=== PATIENT | female | born 1985 | race Caucasian/White ===

== ENCOUNTER 2019-01-13 22:56 | Inpatient (IN) ==
[2019-01-14 01:07] LABS: Basophils # (auto) 0.04 K/uL (0-0.2); Basophils % (auto) 0.3 %; Eosinophils % (auto) 0.8 %; Hematocrit (blood only) 41.5 % (37-47); Hemoglobin 14.3 g/dL (12.0-16.0); Immature Granulocytes # (auto) 0.04 K/uL (0.00-0.02); Immature Granulocytes % (auto) 0.3 %; Lymphocytes # (auto) 2.56 K/uL (1.2-3.4); Lymphocytes % (auto) 21.7 %; Mean Corpuscular Hgb Conc 34.5 g/dL (32-36); Mean Corpuscular Volume 84.3 fL (80-100); Mean Platelet Volume 9.3 fL (7.4-10.4); Monocytes # (auto) 0.77 K/uL (0.11-0.59); Monocytes % (auto) 6.5 %; Neutrophils # (auto) 8.27 K/uL (1.4-6.5); Neutrophils % (auto) 70.4 %; Platelet Count 256 K/uL (130-400); RDW Coefficient of Variation 15.7 % (11.5-14.5); RDW Standard Deviation 48.1 fL (36.4-46.3); Red Blood Count 4.92 M/uL (4.2-5.4); White Blood Count 11.78 K/uL (4.8-10.8)
[2019-01-14 01:26] LABS: Albumin Level 3.6 gm/dl (3.4-5.0); BUN Creatinine Ratio 11.2 (10-20); Creatinine Clr Calc Pharmacy 106.6 ml/min; Est GFR (African American) 134.1; Est GFR (Non-African American) 115.7; Potassium 3.6 mmol/L (3.5-5.1)
[2019-01-14 01:29] LABS: Pregnancy Test, Serum Negative (Negative)
[2019-01-14 01:37] LABS: Albumin Globulin Ratio 0.9 (0.9-2); Bilirubin,Total 0.3 mg/dl (0.2-1); Globulin 4.1 gm/dl (2.5-4.0); Total Protein 7.7 gm/dl (6.4-8.2)
[2019-01-14 01:41] LABS: Acetaminophen < 2 ug/ml (10-30); Salicylate 3.3 mg/dl (2.8-20)
[2019-01-14] MEDS ORDERED: LIDOCAINE/EPINEPHRINE 1% 20 ML VIAL ONE ×2 (02:41→03:26)
[2019-01-14 02:47] LABS: Appearance Urine Clear (Clear); Bilirubin Urine Negative (Negative); Blood Urine Negative (Negative); Color Urine Yellow; Glucose Urine UA Negative (Negative); Ketones Urine Negative (Negative); Leukocyte Esterase Urine Negative (Negative); Nitrite Urine Negative (Negative); Protein Urine Negative (Negative); Specific Gravity Urine 1.018 (1.000-1.030); Urobilinogen Urine Negative (Negative)
[2019-01-14] MEDS ORDERED: LORazepam 2 MG/4 ML VIAL ONE (03:08)
[2019-01-14 03:10] LABS: Amphetamines+Metham, Urine Neg (Neg); Barbiturates, Urine Neg (Neg); Benzodiazepine, Urine Neg (Neg); Cocaine, Urine Neg (Neg); MDMA (Ecstacy), Urine Neg (Neg); Methadone, Urine Neg (Neg); Opiate, Urine Neg (Neg); Phencyclidine, Urine Neg (Neg)
--- NOTE | 2019-01-14 06:36 | XRay Report ---
XR forearm LT 2V CLINICAL HISTORY: Left forearm pain status post trauma COMPARISON: None. DISCUSSION: There is a suspected soft tissue injury near the level of the wrist. No fractures are vis ualized. IMPRESSION: No fractures identified. Electronically signed by: Albaro Chen M.D. 01/14/2019 6:34 AM
[2019-01-14] MEDS ORDERED: ACETAMINOPHEN 500 MG TAB PO STA (06:59)
--- NOTE | 2019-01-14 08:32 | Emergency Department Note ---
ED Visit Note This patient was signed out to me by Dr. ibarra at shift change. She apparently cut her arm. The laceration was repaired. It was deep. At this point there was a 302 statement filled out however she is willing to sign involuntarily and has been evaluated by our rn case mgr who is working on a bed. 3 S. did come and are going to admit the patient for further treatment and evaluation from mental health standpoint In regards to laceration care they should apply bacitracin twice a day and use a sterile dry dressing. Sutures should come out in 10 days and can return to the ER for that. Follow-up sooner if any problems with the wound such as redness, pus, fever, drainage. . : Depression Qualifiers: Depression Type: major depressive disorder Major depression recurrence: unspecified whether recurrent Active/Remission status: currently active Major depression episode severity: moderate Qualified Code(s): F32.1 - Major depressive disorder, single episode, moderate Alcohol intoxication Qualifiers: Complication of substance-induced condition: uncomplicated Qualified Code(s): F10.920 - Alcohol use, unspecified with intoxication, uncomplicated
--- NOTE | 2019-01-14 08:38 | Emergency Department Note ---
Entered by Lluvia Bridges acting as a scribe for Deidra Mccann DO History of Present Illness General Chief complaint: Mental Health Evaluation Stated complaint: laceration Time Seen by Provider: 01/13/19 22:59 Source: patient History of Present Illness Provider complaint: self-inflicted laceration Onset (ago): hour(s) less than 1 Location: upper extremity and left Pain Consistency: + other (episode) Quality: + other (laceration) Associated symptoms: + denies other symptoms (homicidal ideation) and + other (homicidal ideation) The patient is a 33 year old female who presents to the ED with an episode of a self-inflicted laceration on her left forearm that started less than 1 hour ago. Per EMS, the patient states that she saw her mother today which triggered her PTSD, depression and anxiety. Patient admits to cutting herself with a disposable razor blade. The patient notes that she never cut herself like this before, but has a history of suicidal ideations. The patient notes that this episode is her first true attempt. The patient says that it felt really good and relieving to cut herself tonight. The patient notes that she drinks alcohol and smokes cigarettes. The patient states that she uses alcohol to numb herself. The patient notes that she finished a pint of vodka less than 6 hours ago. The patient states that she feels like if she was not alive anymore no one would even notice. The patient denies homicidal ideation. Patient states she has previously been admitted to the psychiatric unit. 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 Patient denies any o ther trauma or injury. States tetanus shot is up-to-date. Please have accompanied EMS to the emergency room. A friend who found her filled out the 302 petition. Home Medications Home Medications Medication Instructions Recorded Confirmed Type No Known Home Medications 10/23/18 01/14/19 History Allergies Allergy/AdvReac Type Severity Reaction Status Date / Time No Known Allergies Allergy Verified 10/23/18 02:30 Past Med/Surg History Social History Preferred Language: Monegasque Communication Ability: Effective Beliefs That Will Affect Care: None Feels Safe at Home: Yes Smoking Status: Current every day smoker Tobacco Type: cigarettes Hx Alcohol Use: Yes Alcohol type: hard liquor Review of Systems See HPI for pertinent positives & negatives. and A total of 10 systems reviewed and were otherwise negative Physical Exam Vital Signs Vital Signs - 24 hr 01/13/19 23:04 01/14/19 04:27 01/14/19 07:33 Temperature 37 C Temperature Source Oral Sepsis Recent Fever Within 48 Hours No Sepsis Action Taken by Nursing No Action Required Pulse Rate 98 H Pulse Rate [Finger] 80 88 Pulse Rhythm Regular Pulse Strength Normal Respiratory Rate 20 18 18 Respiratory Effort / Characteristics Non-Labored Spontaneous Respiratory Depth Normal Respiratory Pattern Regular Blood Pressure 131/81 Blood Pressure [Right Arm] 100/46 L 102/57 L Blood Pressure Mean 97 Blood Pressure Mean [Right Arm] 64 72 Pulse Oximetry 98 94 96 Oxygen Delivery Method Room Air Room Air Room Air GENERAL: alert, well appearing, well nourished, no distress, non-toxic, slightly agitated, smells like EtOH. EYE EXAM: normal conjunctiva, PERRL and EOM's grossly intact OROPHARYNX: no exudate, no erythema, lips, buccal mucosa, and tongue normal and mucous membranes are moist NECK: supple, no nuchal rigidity, no adenopathy, non-tender LUNGS: Clear to auscultation. Normal chest wall mechanics HEART: no murmurs, S1 normal and S2 normal ABDOMEN: abdomen soft, non-tender, normo-active bowel sounds, no masses, no rebound or guarding. BACK: Back is symmetrical on inspection and there is no deformity, no midline tenderness, no CVA tenderness. SKIN: no rashes and no bruising UPPER EXTREMITIES: Normal distal pulses bilaterally, full ROM, no deformities, laceration noted to ventral aspect of left forearm, bleeding controlled, intact active and passive tendon function to left hand, normal capillary refill, no sensory deficits, upper extremities are grossly normal. Laceration extends down through subcutaneous tissue to the top of the muscles which are without injury, tendons are visualized however are intact including during testing with movement of the fingers and hand, no active bleeding, no evidence of vascular injury, no bone visualized, multiple scars noted to bilateral forearms, worse on the left, consistent with prior episodes of cutting. LOWER EXTREMITIES: No pitting edema. FROM, nml pulses b/l. NEURO EXAM: Normal sensorium, cranial nerves II-XII grossly intact, normal speech, no gross weakness of arms, no gross weakness of legs. No ataxia, no facial droop. PSYCH: depression, suicidal ideation, denies homicidal ideation. Procedures Laceration Laceration 1: Site: upper extremity Side (If applicable): left Size (cm): 14 Description: linear Depth: simple, single layer Local Anesthetic: lidocaine 1% and with epi Amount of anesthesia used (mL): 22 Pre-repair: wound explored, irrigated extensively and deep structures intact Skin layer closed with: nylon Size (cm): 4-0 Number of sutures: 15 Technique: simple, interrupted Subcutaneous layer closed with: vicryl Size: 4-0 Number of sutures: 12 Technique: other (figure of 8) Course 2303: Past medical records reviewed. The patient was evaluated in room A3. A complete history and physical exam was performed. 0210: I reevaluated the patient and she is still in distress about the situation. 0313: I performed a laceration repair on the patient's left forearm at this time. Patient became very anxious during this laceration repair due to her fear of needles. Patient was given IV Ativan to help with us and help facilitate adequate wound treatment. 0815: Patient has been seen and evaluated by the psychiatric special education case manager, Alessandra. Patient is willing to sign involuntarily at this time. 0830: Patient signed out to Dr. Inman awaiting final disposition. Patient hemodynamically stable at this time. No recurrent bleeding through repaired laceration site. Administered Medications Discontinued Medications Acetaminophen (Tylenol) 1,000 mg PO NOW STA Stop: 01/14/19 07:00 Last Admin: 01/14/19 07:34 Dose: 1,000 mg Documented by: [id number] Lidocaine/Epinephrine (Xylocaine/Epinephrine 1%) Confirm Administered Dose 20 ml .ROUTE .STK-MED ONE Stop: 01/14/19 02:42 Last Admin: 01/14/19 03:59 Dose: 20 ml Documented by: [id number] Lidocaine/Epinephrine (Xylocaine/Epinephrine 1%) Confirm Administered Dose 20 ml .ROUTE .STK-MED ONE Stop: 01/14/19 03:27 Last Admin: 01/14/19 04:00 Dose: 20 ml Documented by: [id number] Lorazepam (Ativan) Confirm Administered Dose 2 mg .ROUTE .STK-MED ONE Stop: 01/14/19 03:09 Last Admin: 01/14/19 03:18 Dose: 2 mg Documented by: [id number] Medical Decision Making Differential Diagnosis Differential diagnosis: Etiologies such as psychiatric disorder, infection, hypoglycemia, electrolyte abnormalities, cardiac sources, intracerebral event, toxicological process, neurologic disorder, as well as others were entertained. Medical Records Attestation: I reviewed the patient's medical records. Home Medications Current Medication List: was personally reviewed by me Laboratory Data Attestation: I reviewed the patient's lab results. Result diagrams: 01/14/19 00:56 01/14/19 00:56 Lab Results 01/14/19 01/14/19 01/14/19 Range/Units 00:56 00:56 00:56 WBC 11.78 H (4.8-10.8) K/uL RBC 4.92 (4.2-5.4) M/uL Hgb 14.3 (12.0-16.0) g/dL Hct 41.5 (37-47) % MCV 84.3 (80-100) fL MCH 29.1 (25-34) pg MCHC 34.5 (32-36) g/dL RDW Std Deviation 48.1 H (36.4-46.3) fL RDW Coeff of Mikey 15.7 H (11.5-14.5) % Plt Count 256 (130-400) K/uL MPV 9.3 (7.4-10.4) fL Immature Gran % (Auto) 0.3 % Neut % (Auto) 70.4 % Lymph % (Auto) 21.7 % [place] % (Auto) 6.5 % Eos % (Auto) 0.8 % Baso % (Auto) 0.3 % Immature Gran # (Auto) 0.04 H (0.00-0.02) K/uL Neut # (Auto) 8.27 H (1.4-6.5) K/uL Lymph # (Auto) 2.56 (1.2-3.4) K/uL [place] # (Auto) 0.77 H (0.11-0.59) K/uL Eos # (Auto) 0.10 (0-0.5) K/uL Baso # (Auto) 0.04 (0-0.2) K/uL Sodium 139 (136-145) mmol/L Potassium 3.6 (3.5-5.1) mmol/L Chloride 108 H (98-107) mmol/L Carbon Dioxide 24 (21-32) mmol/L Anion Gap 7.0 (3-11) BUN 8 (7-18) mg/dl Creatinine 0.68 (0.6-1.2) mg/dl Est Cr Clr Drug Dosing 106.6 ml/min Est GFR ( Amer) 134.1 Est GFR (Non-Af Amer) 115.7 BUN/Creatinine Ratio 11.2 (10-20) Glucose 90 (70-99) mg/dl Calcium 8.0 L (8.5-10.1) mg/dl Total Bilirubin 0.3 (0.2-1) mg/dl AST 19 (15-37) U/L ALT 20 (12-78) U/L Alkaline Phosphatase 77 (45-117) U/L Total Protein 7.7 (6.4-8.2) gm/dl Albumin 3.6 (3.4-5.0) gm/dl Globulin 4.1 H (2.5-4.0) gm/dl Albumin/Globulin Ratio 0.9 (0.9-2) TSH 1.340 (0.300-4.500) uIu/ml HCG, Qual (Negative) Urine Color Urine Appearance (Clear) Urine pH (4.5-7.5) Ur Specific [place] (1.000-1.030) Urine Protein (Negative) Urine Glucose (UA) (Negative) Urine Ketones (Negative) Urine Blood (Negative) Urine Nitrite (Negative) Urine Bilirubin (Negative) Urine Urobilinogen (Negative) Ur Leukocyte Esterase (Negative) Salicylates 3.3 (2.8-20) mg/dl Urine Opiates Screen (Neg) Ur Methadone, Qual (Neg) Acetaminophen < 2 L (10-30) ug/ml Urine Barbiturates (Neg) Ur Phencyclidine (PCP) (Neg) U Amphetamin/Meth Scrn (Neg) MDMA (Ecstasy) Screen (Neg) U Benzodiazepines Scrn (Neg) Ur Cocaine Metabolite (Neg) U Marijuana (THC) Screen (Neg) Ethyl Alcohol mg/dL (0-3) mg/dl 01/14/19 01/14/19 01/14/19 Range/Units 00:56 00:56 02:00 WBC (4.8-10.8) K/uL RBC (4.2-5.4) M/uL Hgb (12.0-16.0) g/dL Hct (37-47) % MCV (80-100) fL MCH (25-34) pg MCHC (32-36) g/dL RDW Std Deviation (36.4-46.3) fL RDW Coeff of Mikey (11.5-14.5) % Plt Count (130-400) K/uL MPV (7.4-10.4) fL Immature Gran % (Auto) % Neut % (Auto) % Lymph % (Auto) % [place] % (Auto) % Eos % (Auto) % Baso % (Auto) % Immature Gran # (Auto) (0.00-0.02) K/uL Neut # (Auto) (1.4-6.5) K/uL Lymph # (Auto) (1.2-3.4) K/uL [place] # (Auto) (0.11-0.59) K/uL Eos # (Auto) (0-0.5) K/uL Baso # (Auto) (0-0.2) K/uL Sodium (136-145) mmol/L Potassium (3.5-5.1) mmol/L Chloride (98-107) mmol/L Carbon Dioxide (21-32) mmol/L Anion Gap (3-11) BUN (7-18) mg/dl Creatinine (0.6-1.2) mg/dl Est Cr Clr Drug Dosing ml/min Est GFR ( Amer) Est GFR (Non-Af Amer) BUN/Creatinine Ratio (10-20) Glucose (70-99) mg/dl Calcium (8.5-10.1) mg/dl Total Bilirubin (0.2-1) mg/dl AST (15-37) U/L ALT (12-78) U/L Alkaline Phosphatase (45-117) U/L Total Protein (6.4-8.2) gm/dl Albumin (3.4-5.0) gm/dl Globulin (2.5-4.0) gm/dl Albumin/Globulin Ratio (0.9-2) TSH (0.300-4.500) uIu/ml HCG, Qual Negative (Negative) Urine Color Urine Appearance (Clear) Urine pH (4.5-7.5) Ur Specific [place] (1.000-1.030) Urine Protein (Negative) Urine Glucose (UA) (Negative) Urine Ketones (Negative) Urine Blood (Negative) Urine Nitrite (Negative) Urine Bilirubin (Negative) Urine Urobilinogen (Negative) Ur Leukocyte Esterase (Negative) Salicylates (2.8-20) mg/dl Urine Opiates Screen Neg (Neg) Ur Methadone, Qual Neg (Neg) Acetaminophen (10-30) ug/ml Urine Barbiturates Neg (Neg) Ur Phencyclidine (PCP) Neg (Neg) U Amphetamin/Meth Scrn Neg (Neg) MDMA (Ecstasy) Screen Neg (Neg) U Benzodiazepines Scrn Neg (Neg) Ur Cocaine Metabolite Neg (Neg) U Marijuana (THC) Screen Pos H (Neg) Ethyl Alcohol mg/dL 201.0 H (0-3) mg/dl 01/14/19 Range/Units 02:00 WBC (4.8-10.8) K/uL RBC (4.2-5.4) M/uL Hgb (12.0-16.0) g/dL Hct (37-47) % MCV (80-100) fL MCH (25-34) pg MCHC (32-36) g/dL RDW Std Deviation (36.4-46.3) fL RDW Coeff of Mikey (11.5-14.5) % Plt Count (130-400) K/uL MPV (7.4-10.4) fL Immature Gran % (Auto) % Neut % (Auto) % Lymph % (Auto) % [place] % (Auto) % Eos % (Auto) % Baso % (Auto) % Immature Gran # (Auto) (0.00-0.02) K/uL Neut # (Auto) (1.4-6.5) K/uL Lymph # (Auto) (1.2-3.4) K/uL [place] # (Auto) (0.11-0.59) K/uL Eos # (Auto) (0-0.5) K/uL Baso # (Auto) (0-0.2) K/uL Sodium (136-145) mmol/L Potassium (3.5-5.1) mmol/L Chloride (98-107) mmol/L Carbon Dioxide (21-32) mmol/L Anion Gap (3-11) BUN (7-18) mg/dl Creatinine (0.6-1.2) mg/dl Est Cr Clr Drug Dosing ml/min Est GFR ( Amer) Est GFR (Non-Af Amer) BUN/Creatinine Ratio (10-20) Glucose (70-99) mg/dl Calcium (8.5-10.1) mg/dl Total Bilirubin (0.2-1) mg/dl AST (15-37) U/L ALT (12-78) U/L Alkaline Phosphatase (45-117) U/L Total Protein (6.4-8.2) gm/dl Albumin (3.4-5.0) gm/dl Globulin (2.5-4.0) gm/dl Albumin/Globulin Ratio (0.9-2) TSH (0.300-4.500) uIu/ml HCG, Qual (Negative) Urine Color Yellow Urine Appearance Clear (Clear) Urine pH 5.0 (4.5-7.5) Ur Specific [place] 1.018 (1.000-1.030) Urine Protein Negative (Negative) Urine Glucose (UA) Negative (Negative) Urine Ketones Negative (Negative) Urine Blood Negative (Negative) Urine Nitrite Negative (Negative) Urine Bilirubin Negative (Negative) Urine Urobilinogen Negative (Negative) Ur Leukocyte Esterase Negative (Negative) Salicylates (2.8-20) mg/dl Urine Opiates Screen (Neg) Ur Methadone, Qual (Neg) Acetaminophen (10-30) ug/ml Urine Barbiturates (Neg) Ur Phencyclidine (PCP) (Neg) U Amphetamin/Meth Scrn (Neg) MDMA (Ecstasy) Screen (Neg) U Benzodiazepines Scrn (Neg) Ur Cocaine Metabolite (Neg) U Marijuana (THC) Screen (Neg) Ethyl Alcohol mg/dL (0-3) mg/dl Imaging Data Attestation: I personally reviewed and interpreted this imaging study as follows: My Impression: 2-View Left Forearm No fracture, no dislocation, no foreign body Blood Pressure Blood Pressure Findings: Normal blood pressure Blood Pressure Disposition: did not require urgent referral MDM Narrative Patient brought in by EMS with police accompanying after having attempted suicide by cutting her left wrist and forearm. Bleeding was controlled and dressing applied prehospital. Patient had no other evidence of injury or trauma and denied any other injury. Patient was found to have alcohol intoxication however was answering questions appropriately, and verbalizing that she was upset that her suicide attempt it failed. Patient remained hemodynamically stable throughout. Patient was given IV Ativan due to her increased anxiety over the laceration repair. Area was extensively irrigated, repaired, and a new dressing applied. No evidence of vascular injury, tendon injury, or other damage from the self-harm. Labs and imaging otherwise reassuring in the patient. Impression & Plan Suicide attempt, Depression, Alcohol intoxication, Self-harming behavior, Laceration Discharge Plan Visit Data Chief Complaint: Mental Health Evaluation Stated Complaint: laceration ED Provider: Deidra Mccann Discharge Problem: Suicide attempt, Depression, Alcohol intoxication, Self-harming behavior, Laceration Patient Disposition: Transfer Behavioral Health Fac Condition: Good Forms Stand Alone Forms: [place] Prescriptions Prescriptions: No Action No Known Home Medications RF: 0 Referrals Referrals: PCP,NO [Primary Care Provider] - Discharge Problem: Depression Qualifiers: Depression Type: major depressive disorder Major depression recurrence: unspecified whether recurrent Active/Remission status: currently active Major depression episode severity: moderate Qualified Code(s): F32.1 - Major depressive disorder, single episode, moderate Alcohol intoxication Qualifiers: Complication of substance-induced condition: uncomplicated Qualified Code(s): F10.920 - Alcohol use, unspecified with intoxication, uncomplicated The scribe's documentation has been prepared under my direction and personally reviewed by me in its entirety. I confirm that the note above accurately reflects all work, treatment, procedures, and medical decision making performed by me.
[2019-01-14] MEDS ORDERED: ALUMINUM/MAGNESIUM SUSP 30 ML UDC PO PRN ×2 (11:32→15:29)
[2019-01-14] MEDS ORDERED: MAGNESIUM HYDROXIDE SUSP 30 ML UDC PO PRN ×2 (11:32→15:29)
[2019-01-14] MEDS ORDERED: SODIUM CHLORIDE 0.65% NA SOLN 45 ML (OCEAN) PRN ×2 (11:32→15:29)
[2019-01-14] MEDS ORDERED: ACETAMINOPHEN 325 MG TAB PO PRN ×2 (11:32→15:29)
[2019-01-14] MEDS ORDERED: NICOTINE POLACRILEX 2 MG GUM MT PRN (11:32)
[2019-01-14] MEDS ORDERED: BISMUTH SUBSALICYLATE PER ML OMNICELL CHARGE PO PRN ×2 (11:32→15:29)
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
[2019-01-14] MEDS: IBUPROFEN 800 MG TAB PO PRN ×2 (15:04→22:46)
[2019-01-14] MEDS: NICOTINE 21 MG/24 HR TDSY TD SCH (15:06)
[2019-01-14] MEDS ORDERED: LORazepam 1 MG TAB PO PRN (15:29)
[2019-01-14] MEDS ORDERED: GABAPENTIN 1200MG ALCOHOL WITHDRAWAL LOAD PO STA (15:29)
[2019-01-14] MEDS ORDERED: GABAPENTIN 600 MG TAB PO SCH (16:00)
[2019-01-14] MEDS ORDERED: NEOMYCIN/POLYMYX/BACITR OINT 15 GM TUBE EXT SCH (21:00)
[2019-01-14] MEDS: GABAPENTIN 600 MG TAB PO SCH (21:22)
[2019-01-15] MEDS: GABAPENTIN 600 MG TAB PO SCH ×2 (06:18→21:16)
[2019-01-15] MEDS: IBUPROFEN 800 MG TAB PO PRN ×2 (09:11→18:28)
[2019-01-15] MEDS: NICOTINE 21 MG/24 HR TDSY TD SCH (09:16)
[2019-01-15] MEDS: NEOMYCIN/POLYMYX/BACITR OINT 15 GM TUBE EXT PRN (10:36)
[2019-01-15] MEDS ORDERED: GABAPENTIN 600 MG TAB PO SCH (14:00)
[2019-01-15] MEDS: lamoTRIgine 25 MG TAB PO SCH (18:29)
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
[2019-01-16] MEDS: NICOTINE 21 MG/24 HR TDSY TD SCH (08:42)
[2019-01-16] MEDS: GABAPENTIN 600 MG TAB PO SCH ×2 (08:42→20:54)
[2019-01-16] MEDS: lamoTRIgine 25 MG TAB PO SCH (08:42)
[2019-01-16] MEDS: IBUPROFEN 800 MG TAB PO PRN ×2 (08:45→16:54)
--- NOTE | 2019-01-16 09:33 | Psychiatric Progress Note ---
Date of Service January 16, 2019 Impression / Recommendations Impression 33 yr old with suicide attempt by slicing her wrist, in context of worsening of depression symptoms, with also h/o PTSD and alcohol usage with past psych admissions, had been attending psychotherapy appts at [facility] but last seen over 2 months ago and did not obtain any psychiatric services nor take psychotropics Meds after last psych admission in May 2018. Pt has continued to demonstrate some irritability on the unit, but has been more cooperative overall. She has been attending group programming. Pt had verbalized hypomanic and mixed episodes occurring 5-10 times or so a year, for several days to perhaps a week at a time, that is different then her depressive or more euthymic states. She was started on lamotrigine which she seems to be tolerating. Ongoing consideration for paroxetine if there is a clear indication or verbalized desire from the patient to begin an SSRI. Reviewed risks of activation or inducing a hypomanic episode versus potential benefit in mood/PTSD symptoms. Pt is agreeable to hold off on initiation of the medication at this time. She continues to verbalize SI episodically throughout her stay, most recently this morning. Given her self-inflicted lacerations, worsening depressive symptoms, and little improvement since admission - patient continues to be at high risk of harm to herself if she discharged prematurely. (1) Suicide attempt: 01/14 - q15 minutes checks (SI) 01/16 - Pt continues to endorse episodes of suicidality - Verbalizes limited improvements in symptoms at this point in her hospitalization - Remains unable to contract for safety outside of hospital setting (2) Bipolar disorder: 01/14 - q15 minutes checks (SI) pt guarded,not cooperative and too upset and guarded to engage in treatment planning, she sought to end assessment early and will engage further in treatment planning at next assessment tomorrow, reviewed with nurses and reviewed past hospitalization records. Will consider retrial of prozac or another SSRI/SNRI option if appropriate while also exploring for h/o hypomanic/mixed features aspects to her presentation. Exploring for possible PTSD and anxiety d/o related concerns as well. - coordinated with psychotherapist at [facility] and aim for outpt therapy appointments to resume at [facility] encouraging psychiatric referral for aftercare as well mileui therapy inpt group and individual therapy 01/15 - Bipolar d/o given reports of manic and mixed episodes (was also dx with bipolar d/o per pt back years ago at [facility] reviewed ssri's including Paxil in denial but potential to add to mood lability or to have full manic activation given bipolar d/o does meghna to be appropriate dx based on history obtained and thus will hold off from adding this med at this time Reviewed various mood stabilizers and atypical antipsychotics and pt consent to Lamictal trial after full review of r/b/a including SJS and other potential adverse events from this med and need to stop med if rash or other related s/s occur lamictal 25mg a day rx'd with aim to titrate up as appropriate gabapentin converted to 6-00mg bid given tolerability and her history of finding it tolerable and mood stabilizing/calming for her - referral for psychiatric care at [facility] and attempting to establish aftercare psychotherapy apps after d/c at [facility] with current therapist encouraging family meetings with mother and/or gf 01/16 - Continue lamotrigine at 25mg daily and titrate according to schedule; no verbalized side effects presently - Reviewed risks and benefits of adding paroxetine at this time (further mood instability, inducing krishna/activation versus improvement in mood or PTSD symptoms) - Pt verbalized desire to hold on starting paroxetine and revisit in a few days - Pt agreeable to a family meeting with her girlfriend this week - Continue to encourage group and recreational programming (3) PTSD (post-traumatic stress disorder): 01/15 consider SSRI as appropriate and needed for PTSD symptoms but holding such med option for now as bipolar d/o concerns are more pressing and ssri might worsen presentation at this time (4) Alcohol intoxication: 01/14 - AWSS added gabapentin taper given alcohol usage and to help minimize alcohol withdrawal concerns with also gabapentin being a reported alleviating med for her in the past. Also consideration of converting to scheduled doses if appropriate - encourage AA and related alcohol based interventions given h/o rehab for alcohol use concerns and pt reported increased alcohol usage lately with exploring for appropriateness of further interventions for alcohol and/or other substance use concerns (+ cannabis on tox) 01/15 - Gabapentin converted to 6-00mg bid given tolerability and her history of finding it tolerable and mood stabilizing/calming for her addressing alcohol concerns, denied h/o significant withdrawal concerns or sz's, exploring for need for more alcohol related interventions - AWSS 01/16 - AWSS discontinued as patient has consistently scored a 0 on assessments Inventory Assets Strengths: had been attending therapy appts, signed in as voluntary patient Needs: housing, relationship concerns, re-engaging in therapy, outpatient psychiatrist, clarifying degree of alcohol use concerns, potential of psychotropic medication treatment as part of treatment plan Risk Factors Assessment Male: No Do You Have Access To A Gun?: No Mental Health Diagnoses: Yes Previous Attempt: Yes Previous Psychiatric Hospitalization: Yes Hopelessness: Yes Smoker: Yes Protective Factors Assessment Employed: No Interval History Identifying Information PJ GARBER is a 33-year-old F who currently is homeless and has a history of depression. Pt was admitted on 01/14/19 on a 201 voluntary commitment. Patient was admitted from [facility] ER after being brought to the ER by police given her suicide attempt by cutting her left forearm while intoxicated from alcohol. Chief Complaint "Um, the weekend was up and down." Review of Systems Notes Constitutional: denied Cardiovascular: denied Respiratory: denied Gastrointestinal: denied Neurological: denied Integumentary: reports itching of her left forearm, due to lacerations/dressing Psychiatric: denies symptoms other than stated above Total of at least 10 systems reviewed, pertinent positives as above and in HPI. Sleep Information Total Hours of Sleep: 7.5 Sleep Comments: pt given vistaril per rn. pt on q-15 minute checks Meal Information Percent Meal Consumed - Breakfast: 50 Percent Meal Consumed - Lunch: 75 Percent Meal Consumed - Dinner: 100 Subjective Subjective Patient was seen & assessed and interval progress reviewed with Treatment Team. Staff report the patient has been participating in groups, but is somewhat guarded and irritable. Pt continued to verbalize SI last evening. Pt was seen today to assess progress since admission. Pt states she had a lot of "ups and downs" over the weekend, as she is rather upset about the limited support she has received from family/friend/girlfriend since her admission. Pt frequently states, "they know I'm here, but no one has called." Pt often makes statements along the lines of "everyone was asking everything of me, and they had nothing to give in return" and "I felt like I lost everyone." Pt states that while she is not noticing a significant change in her mood or SI, she has found benefit in feeling as though her feelings are validated. She states she appreciated group therapy this morning as her peers were able to offer perspective and understanding she does not normally receive on an outpatient basis. Pt states she had done a lot of work during her last admission on recognizing and combating "cognitive distortions" - but questions what she can do on this admission to change her circumstances. She admits her girlfriend is willing to have a family meeting this week, and the patient recognizes they will need to discuss aspects of their communication that have been causing issues. Pt questions about starting paroxetine, as her mother has been on it previously, and was accepting of some general education regarding the medication and lamotrigine. Pt admits to SI last evening and this morning - feeling it has been most related at this point to thoughts of not having heard from her outpatient supports. Physical Exam Psychiatric Orientation: alert, oriented x 3 and cooperative though episodes of intense irritability were observed throughout the day prior to encounter Apperance: appropriately dressed (casually, in t-shirt and leggings) and appropriately groomed Eye Contact: good eye contact Motor Behavior: steady gait and station and no abnormal motor movements Speech: normal rate/rhythm/volume of speech Affect: + depressed affect and + tearful affect Mood: + depressed mood "ups and downs" and "like I lost everything" Thought Process: goal directed thought process and clear/coherent thought process Thought Content: reality based without delusions Suicidal Thoughts: + reports suicidal thoughts (SI as recently as this morning) Homicidal Thoughts: denies homicidal thoughts Hallucinations: no auditory hallucinations and no visual hallucinations Cognition: attention grossly intact and language grossly intact Estimated Intelligence: consistent with education level Insight: + impaired insight Judgement: + impaired judgement Vital Signs (Past 24 Hours) Last Vital Signs Temp 36.7 C 01/16/19 06:56 Pulse 65 01/16/19 06:57 Resp 16 01/16/19 06:56 BP 112/70 01/16/19 06:57 Pulse Ox 97 01/14/19 11:56 Results & Data Current Inpatient Medications Current Inpatient Medications: Current Inpatient Medications Acetaminophen (Tylenol) 650 mg PO Q4H PRN PRN Reason: Headache or Minor Fever Stop: 02/13/19 11:31 Al Hydrox/Mg Hydrox/Simethicone (Maalox) 30 ml PO Q4H PRN PRN Reason: GI Upset Stop: 02/13/19 11:31 Bismuth Subsalicylate (Kaopectate) 15 ml PO PRN PRN PRN Reason: Loose Stool Stop: 02/13/19 11:31 Gabapentin (Neurontin) 600 mg PO BID [facility] Stop: 02/14/19 20:59 Last Admin: 01/16/19 08:42 Dose: 600 mg Documented by: Hydroxyzine HCl (Vistaril) 50 mg PO HSZ PRN PRN Reason: Insomnia Stop: 02/13/19 11:31 Last Admin: 01/14/19 22:49 Dose: 50 mg Documented by: Hydroxyzine HCl (Vistaril) 25 mg PO Q4H PRN PRN Reason: Anxiety Stop: 02/13/19 11:31 Ibuprofen (Motrin) 800 mg PO TID PRN PRN Reason: Pain Stop: 02/13/19 14:24 Last Admin: 01/16/19 08:45 Dose: 800 mg Documented by: Lamotrigine (Lamictal) 25 mg PO QAM [facility] Stop: 02/14/19 16:29 Last Admin: 01/16/19 08:42 Dose: 25 mg Documented by: Lorazepam (Ativan) 1 mg PO ONE PRN; Protocol PRN Reason: EtoH Withdrawal AWSS 6-10 Magnesium Hydroxide (Milk Of Magnesia) 30 ml PO DAILY PRN PRN Reason: Heartburn Stop: 02/13/19 11:31 Miscellaneous (Remove Nicoderm Patch) 1 ea N/A HS [facility] Stop: 02/13/19 21:59 Last Admin: 01/15/19 21:16 Dose: Not Given Documented by: Neomycin/Polymyxin/Bacitracin (Neosporin Oint) 1 appln EXT TID PRN PRN Reason: wound healing concerns Stop: 02/13/19 20:59 Last Admin: 01/15/19 10:36 Dose: 1 appln Documented by: Nicotine (Nicoderm Cq) 21 mg TD QAM ALFREDO Stop: 02/13/19 08:59 Last Admin: 01/16/19 08:42 Dose: 21 mg Documented by: Nicotine Polacrilex (Nicorette 2mg) 1 piece MT UD PRN PRN Reason: Nicotine Withdrawal Stop: 02/13/19 11:31 Sodium Chloride (Weber Nasal) 1 - 2 sprays NA PRN PRN PRN Reason: Nasal Dryness/Congestion Stop: 02/13/19 11:31 Mental Health & Subst Abuse Tx Therapist Name of Therapist: Jessica Young [place] Administrator Name of [place] Administrator: Adia through [facility] Post Discharge Appointments Primary Care Physician Name Of Family Doctor: FANNY Braden CPT Code CPT Code 51388 (1) Bipolar disorder Active/Remission status: currently active Current bipolar episode type: depressed (2) Alcohol intoxication Complication of substance-induced condition: uncomplicated Qualified Code(s): F10.920 - Alcohol use, unspecified with intoxication, uncomplicated
[2019-01-16] MEDS: NEOMYCIN/POLYMYX/BACITR OINT 15 GM TUBE EXT PRN (13:25)
[2019-01-16] MEDS ORDERED: GABAPENTIN 600 MG TAB PO SCH (18:00)
[2019-01-17] MEDS: IBUPROFEN 800 MG TAB PO PRN ×2 (04:07→13:19)
[2019-01-17] MEDS: NICOTINE 21 MG/24 HR TDSY TD SCH (07:49)
[2019-01-17] MEDS: lamoTRIgine 25 MG TAB PO SCH (07:49)
[2019-01-17] MEDS: GABAPENTIN 600 MG TAB PO SCH ×2 (07:49→21:01)
--- NOTE | 2019-01-17 08:55 | Psychiatric Progress Note ---
Date of Service January 17, 2019 Impression / Recommendations Impression 33 yr old with suicide attempt by slicing her wrist, in context of worsening of depression symptoms, with also h/o PTSD and alcohol usage with past psych admissions, had been attending psychotherapy appts at [facility] but last seen over 2 months ago and did not obtain any psychiatric services nor take psychotropics Meds after last psych admission in May 2018. Pt has continued to demonstrate some irritability on the unit, but has been more cooperative overall. She has been attending group programming. Pt had verbalized hypomanic and mixed episodes occurring 5-10 times or so a year, for several days to perhaps a week at a time, that is different then her depressive or more euthymic states. She was started on lamotrigine which she seems to be tolerating. Trazodone 50 mg initiated as needed to assist with sleep. Ongoing consideration for paroxetine if there is a clear indication or verbalized desire from the patient to begin an SSRI. Reviewed risks of activation or inducing a hypomanic episode versus pot ential benefit in mood/PTSD symptoms. She continues to verbalize SI episodically throughout her stay, and endorses limited hopefulness. Family meeting with girlfriend scheduled for . Given her self-inflicted lacerations, worsening depressive symptoms, and little improvement since admission - patient continues to be at high risk of harm to herself if she discharged prematurely. (1) Suicide attempt: 01/14 - q15 minutes checks (SI) 01/16 - Pt continues to endorse episodes of suicidality - Verbalizes limited improvements in symptoms at this point in her hospitalization - Remains unable to contract for safety outside of hospital setting 01/17 - Denied SI at time of assessment, but verbalized little change in mood and limited hopefulness - Continue to be frustrated her attempt was not successful (2) Bipolar disorder: 01/14 - q15 minutes checks (SI) pt guarded,not cooperative and too upset and guarded to engage in treatment planning, she sought to end assessment early and will engage further in treatment planning at next assessment tomorrow, reviewed with nurses and reviewed past hospitalization records. Will consider retrial of prozac or another SSRI/SNRI option if appropriate while also exploring for h/o hypomanic/mixed features aspects to her presentation. Exploring for possible PTSD and anxiety d/o related concerns as well. - coordinated with psychotherapist at [facility] and aim for outpt therapy appointments to resume at [facility] encouraging psychiatric referral for aftercare as well miljamesi therapy inpt group and individual therapy 01/15 - Bipolar d/o given reports of manic and mixed episodes (was also dx with bipolar d/o per pt back years ago at [facility] reviewed ssri's including Paxil in denial but potential to add to mood lability or to have full manic activation given bipolar d/o does meghna to be appropriate dx based on history obtained and thus will hold off from adding this med at this time Reviewed various mood stabilizers and atypical antipsychotics and pt consent to Lamictal trial after full review of r/b/a including SJS and other potential adverse events from this med and need to stop med if rash or other related s/s occur lamictal 25mg a day rx'd with aim to titrate up as appropriate gabapentin converted to 6-00mg bid given tolerability and her history of finding it tolerable and mood stabilizing/calming for her - referral for psychiatric care at [facility] and attempting to establish aftercare psychotherapy apps after d/c at [facility] with current therapist encouraging family meetings with mother and/or gf 01/16 - Continue lamotrigine at 25mg daily and titrate according to schedule; no verbalized side effects presently - Reviewed risks and benefits of adding paroxetine at this time (further mood instability, inducing krishna/activation versus improvement in mood or PTSD symptoms) - Pt verbalized desire to hold on starting paroxetine and revisit in a few days - Pt agreeable to a family meeting with her girlfriend this week - Continue to encourage group and recreational programming 01/17 - Continue lamotrigine; trazodone 50mg initiated to assist with sleep - Family meeting with girlfriend scheduled for - Pt to meet with correctional case records supervisor this afternoon - Continue to encourage group particpation (3) PTSD (post-traumatic stress disorder): 01/15 consider SSRI as appropriate and needed for PTSD symptoms but holding such med option for now as bipolar d/o concerns are more pressing and ssri might worsen presentation at this time (4) Alcohol intoxication: 01/14 - AWSS added gabapentin taper given alcohol usage and to help minimize alcohol withdrawal concerns with also gabapentin being a reported alleviating med for her in the past. Also consideration of converting to scheduled doses if appropriate - encourage AA and related alcohol based interventions given h/o rehab for alcohol use concerns and pt reported increased alcohol usage lately with exploring for appropriateness of further interventions for alcohol and/or other substance use concerns (+ cannabis on tox) 01/15 - Gabapentin converted to 6-00mg bid given tolerability and her history of finding it tolerable and mood stabilizing/calming for her addressing alcohol concerns, denied h/o significant withdrawal concerns or sz's, exploring for need for more alcohol related interventions - AWSS 01/16 - AWSS discontinued as patient has consistently scored a 0 on assessments 01/17 -Brief intervention was offered and accepted Intervention was greater than 5 min in length. Brief interventions include: 1. Assess Readiness to Quit, 2. Advise: Help Patient to Reduce or Abstain from Alcohol, 3. Agree: Set Specific, Feasible Goals, 4. Assist: Anticipate barriers, Problem-Solving Solutions. Social work to 5. Arrange: Referrals to appropriate treatment. Summary of intervention: The patient is in preparation stage with regards to transtheoretical model of change. Indicates plan to reach out to a support to request sponsorship - planning to schedule weekly AA meetings. The patient is advised to decrease alcohol consumption due to depressant effects and risk of interactions with prescription medications. The patient was advised of recommendations for abstinence from alcohol and other abusable substances and to attend substance abuse treatment at discharge, and will be provided with recovery materials to continue to education self on how to cope with their condition without drinking. Inventory Assets Strengths: had been attending therapy appts, signed in as voluntary patient Needs: housing, relationship concerns, re-engaging in therapy, outpatient psychiatrist, clarifying degree of alcohol use concerns, potential of psychot ropic medication treatment as part of treatment plan Risk Factors Assessment Male: No Do You Have Access To A Gun?: No Mental Health Diagnoses: Yes Previous Attempt: Yes Previous Psychiatric Hospitalization: Yes Hopelessness: Yes Smoker: Yes Protective Factors Assessment Employed: No Interval History Identifying Information PJ GARBER is a 33-year-old F who currently is homeless and has a history of depression. Pt was admitted on 01/14/19 on a 201 voluntary commitment. Dexter del cid was admitted from [facility] after being brought to the ER by police given her suicide attempt by cutting her left forearm while intoxicated from alcohol. Chief Complaint "Yesterday went really well. I have been doing a lot of writing and coloring." Review of Systems Notes Constitutional: Ongoing difficulty sleeping Cardiovascular: denied Respiratory: denied Gastrointestinal: denied Neurological: denied Psychiatric: denies symptoms other than stated above Total of at least 10 systems reviewed, pertinent positives as above and in HPI. Sleep Information Total Hours of Sleep: 6 Sleep Comments: pt on q-15 minute checks Meal Information Percent Meal Consumed - Breakfast: 50 Percent Meal Consumed - Lunch: 100 Percent Meal Consumed - Dinner: 90 Subjective Subjective Patient was seen & assessed and interval progress reviewed with Nursing and social work. Staff reports the patient has a meeting scheduled for today with her outpatient correctional case records supervisor. She also has a meeting scheduled with her girlfriend for . Patient received a visit from her girlfriend last evening, at times requiring staff redirection for displays of affection. Patient was seen today to assess progress since admission. She states that yesterday went well for her, and she keeps herself busy with various activities on the unit. She is continued to participate in group programming, and feels group therapy to be rather beneficial for her. Patient states that she was excited to receive a visit from her girlfriend last evening and states "I felt a lot of love." Patient states that they were able to talk about their meeting on , and the patient's girlfriend was asked to create a list of things that she would like to discuss during the meeting. The patient has indicated to multiple staff members her concerns for communication difficulty and lack of understanding within their relationship. Patient is hopeful that her girlfriend will be honest and expressed concerns openly, so they can be properly addressed. The patient states "after talking to some people yesterday, I realized that she has a lot of control over my mood. We will need to work on that." The patient verbalizes objectives for the day, which include "coming clean" to her correctional case records supervisor about her current living situation (i.e. homelessness) and creating a list of what she hopes to say to an individual she is requesting become her AA sponsor. Patient was encouraged to reach out to staff as needed as she works on these tasks throughout the day. Patient denied overt suicidality, but verbalized little improvement in her mood and limited hopefulness. Patient does request a medication to assist with sleep, as she indicates previous trials with hydroxyzine have provided paradoxical effects. Patient had received trazodone in the past with good response to lower doses. Patient denies other needs or concerns today. Physical Exam Psychiatric Orientation: alert, oriented x 3 and cooperative Apperance: appropriately dressed and appropriately groomed Eye Contact: good eye contact Motor Behavior: steady gait and station and no abnormal motor movements Speech: normal rate/rhythm/volume of speech Affect: + depressed affect (Mildly); + mood not congruent with affect Mood: + depressed mood Patient endorsing mood concerns of greater severity than affect suggests, "there has not been much difference in my mood" Thought Process: goal directed thought process and clear/coherent thought process Thought Content: reality based without delusions Suicidal Thoughts: denies suicidal thoughts (At time of assessment) Homicidal Thoughts: denies homicidal thoughts Hallucinations: no auditory hallucinations and no visual hallucinations Cognition: attention grossly intact and language grossly intact Estimated Intelligence: consistent with education level Insight: + fair insight Judgement: + fair judgement Vital Signs (Past 24 Hours) Last Vital Signs Temp 36.7 C 01/17/19 06:41 Pulse 91 H 01/17/19 06:42 Resp 18 01/17/19 06:41 BP 109/70 01/17/19 06:42 Pulse Ox 97 01/14/19 11:56 Results & Data Laboratory Results Laboratory Results - last 24 hr 01/14/19 02:00 U Marijuana THC Carboxy 92 A Current Inpatient Medications Current Inpatient Medications: Current Inpatient Medications Acetaminophen (Tylenol) 650 mg PO Q4H PRN PRN Reason: Headache or Minor Fever Stop: 02/13/19 11:31 Al Hydrox/Mg Hydrox/Simethicone (Maalox) 30 ml PO Q4H PRN PRN Reason: GI Upset Stop: 02/13/19 11:31 Bismuth Subsalicylate (Kaopectate) 15 ml PO PRN PRN PRN Reason: Loose Stool Stop: 02/13/19 11:31 Gabapentin (Neurontin) 600 mg PO BID ALFREDO Stop: 02/14/19 20:59 Last Admin: 01/17/19 07:49 Dose: 600 mg Documented by: Hydroxyzine HCl (Vistaril) 50 mg PO HSZ PRN PRN Reason: Insomnia Stop: 02/13/19 11:31 Last Admin: 01/14/19 22:49 Dose: 50 mg Documented by: Hydroxyzine HCl (Vistaril) 25 mg PO Q4H PRN PRN Reason: Anxiety Stop: 02/13/19 11:31 Ibuprofen (Motrin) 800 mg PO TID PRN PRN Reason: Pain Stop: 02/13/19 14:24 Last Admin: 01/17/19 04:07 Dose: 800 mg Documented by: Lamotrigine (Lamictal) 25 mg PO QAM [facility] Stop: 02/14/19 16:29 Last Admin: 01/17/19 07:49 Dose: 25 mg Documented by: Magnesium Hydroxide (Milk Of Magnesia) 30 ml PO DAILY PRN PRN Reason: Heartburn Stop: 02/13/19 11:31 Miscellaneous (Remove Nicoderm Patch) 1 ea N/A HS [facility] Stop: 02/13/19 21:59 Last Admin: 01/16/19 20:54 Dose: Not Given Documented by: Neomycin/Polymyxin/Bacitracin (Neosporin Oint) 1 appln EXT TID PRN PRN Reason: wound healing concerns Stop: 02/13/19 20:59 Last Admin: 01/16/19 13:25 Dose: 1 appln Documented by: Nicotine (Nicoderm Cq) 21 mg TD QAM [facility] Stop: 02/13/19 08:59 Last Admin: 01/17/19 07:49 Dose: 21 mg Documented by: Nicotine Polacrilex (Nicorette 2mg) 1 piece MT UD PRN PRN Reason: Nicotine Withdrawal Stop: 02/13/19 11:31 Sodium Chloride (Arnold Nasal) 1 - 2 sprays NA PRN PRN PRN Reason: Nasal Dryness/Congestion Stop: 02/13/19 11:31 Mental Health & Subst Abuse Tx Psychiatrist Name of Psychiatrist: [facility] - will be scheduled after the initial intake Therapist Name of Therapist: [facility] Erasto Paz Therapist's Date of Therapist Appointment: 02/02/19 Time of Therapist Appointment: 12:30 p.m. Therapy Appointment Comment[facility] [address] [facility] [place] [address] [employer] Traffic [employer]er Name of Waterway Traffic Checker: MARIO ALBERTO Theodore Phone Number for Waterway Traffic Checker: [phone] Post Discharge Appointments Primary Care Physician Name Of Family Doctor: FANNY Braden [place] Primary Care Provider Appointment Comment: [address] [place] [address] CPT Code CPT Code 73524 (1) Alcohol intoxication Complication of substance-induced condition: uncomplicated Qualified Code(s): F10.920 - Alcohol use, unspecified with intoxication, uncomplicated (2) Bipolar disorder Active/Remission status: currently active Current bipolar episode type: depressed
[2019-01-17] MEDS: NEOMYCIN/POLYMYX/BACITR OINT 15 GM TUBE EXT PRN (20:30)
[2019-01-17] MEDS: TRAZODONE HCL 50 MG TAB PO PRN (22:35)
[2019-01-18] MEDS ORDERED: GABAPENTIN 600 MG TAB PO SCH (06:00)
[2019-01-18] MEDS: GABAPENTIN 600 MG TAB PO SCH ×2 (08:51→22:16)
[2019-01-18] MEDS: NICOTINE 21 MG/24 HR TDSY TD SCH (08:51)
[2019-01-18] MEDS: lamoTRIgine 25 MG TAB PO SCH (08:51)
[2019-01-18] MEDS: NEOMYCIN/POLYMYX/BACITR OINT 15 GM TUBE EXT PRN (09:21)
--- NOTE | 2019-01-18 10:30 | Psychiatric Progress Note ---
Date of Service January 18, 2019 Impression / Recommendations Impression 33 yr old with suicide attempt by slicing her wrist, in context of worsening of depression symptoms, with also h/o PTSD and alcohol usage with past psych admissions, had been attending psychotherapy appts at [facility] but last seen over 2 months ago and did not obtain any psychiatric services nor take psychotropics Meds after last psych admission in May 2018. Pt has continued to demonstrate some irritability on the unit, but has been more cooperative overall. She has been attending group programming. Pt had verbalized hypomanic and mixed episodes occurring 5-10 times or so a year, for several days to perhaps a week at a time, that is different then her depressive or more euthymic states. She was started on lamotrigine which she seems to be tolerating. Trazodone 50 mg initiated as needed to assist with sleep. Ongoing consideration for paroxetine if there is a clear indication or verbalized desire from the patient to begin an SSRI. Reviewed risks of activation or inducing a hypomanic episode versus pot ential benefit in mood/PTSD symptoms. She continues to verbalize SI episodically throughout her stay, and endorses limited hopefulness. Family meeting with girlfriend scheduled for . Given her self-inflicted lacerations, difficulty with regulating emotions, worsening depressive symptoms, and little improvement since admission - patient continues to be at high risk of harm to herself if she discharged prematurely. (1) Suicide attempt: 01/14 - q15 minutes checks (SI) 01/16 - Pt continues to endorse episodes of suicidality - Verbalizes limited improvements in symptoms at this point in her hospitalization - Remains unable to contract for safety outside of hospital setting 01/17 - Denied SI at time of assessment, but verbalized little change in mood and limited hopefulness - Continue to be frustrated her attempt was not successful 01/18 - Verbalizes SI last evening in the context of feeling unsupported by peer - Unable to contract for safety outside of inpatient setting (2) Bipolar disorder: 01/14 - q15 minutes checks (SI) pt guarded,not cooperative and too upset and guarded to engage in treatment planning, she sought to end assessment early and will engage further in treatment planning at next assessment tomorrow, reviewed with nurses and reviewed past hospitalization records. Will consider retrial of prozac or another SSRI/SNRI option if appropriate while also exploring for h/o hypomanic/mixed features aspects to her presentation. Exploring for possible PTSD and anxiety d/o related concerns as well. - coordinated with psychotherapist at [facility] and aim for outpt therapy appointments to resume at [facility] encouraging psychiatric referral for aftercare as well mili therapy inpt group and individual therapy 01/15 - Bipolar d/o given reports of manic and mixed episodes (was also dx with bipolar d/o per pt back years ago at [facility] reviewed ssri's including Paxil in denial but potential to add to mood lability or to have full manic activation given bipolar d/o does meghna to be appropriate dx based on history obtained and thus will hold off from adding this med at this time Reviewed various mood stabilizers and atypical antipsychotics and pt consent to Lamictal trial after full review of r/b/a including SJS and other potential adverse events from this med and need to stop med if rash or other related s/s occur lamictal 25mg a day rx'd with aim to titrate up as appropriate gabapentin converted to 6-00mg bid given tolerability and her history of finding it tolerable and mood stabilizing/calming for her - referral for psychiatric care at [facility] and attempting to establish aftercare psychotherapy apps after d/c at [facility] with current therapist encouraging family meetings with mother and/or gf 01/16 - Continue lamotrigine at 25mg daily and titrate according to schedule; no verbalized side effects presently - Reviewed risks and benefits of adding paroxetine at this time (further mood instability, inducing krishna/activation versus improvement in mood or PTSD symptoms) - Pt verbalized desire to hold on starting paroxetine and revisit in a few days - Pt agreeable to a family meeting with her girlfriend this week - Continue to encourage group and recreational programming 01/17 - Continue lamotrigine; trazodone 50mg initiated to assist with sleep - Family meeting with girlfriend scheduled for - Pt to meet with caser up this afternoon - Continue to encourage group participation 01/18 - Continue current medication regimen - Family meeting tomorrow - Assist patient as needed with phone calls regarding housing - Continue to encourage group participation (3) PTSD (post-traumatic stress disorder): 01/15 consider SSRI as appropriate and needed for PTSD symptoms but holding such med option for now as bipolar d/o concerns are more pressing and ssri might worsen presentation at this time (4) Alcohol intoxication: 01/14 - AWSS added gabapentin taper given alcohol usage and to help minimize alcohol withdrawal concerns with also gabapentin being a reported alleviating med for her in the past. Also consideration of converting to scheduled doses if appropriate - encourage AA and related alcohol based interventions given h/o rehab for alcohol use concerns and pt reported increased alcohol usage lately with exploring for appropriateness of further interventions for alcohol and/or other substance use concerns (+ cannabis on tox) 01/15 - Gabapentin converted to 6-00mg bid given tolerability and her history of finding it tolerable and mood stabilizing/calming for her addressing alcohol concerns, denied h/o significant withdrawal concerns or sz's, exploring for need for more alcohol related interventions - AWSS 01/16 - AWSS discontinued as patient has consistently scored a 0 on assessments 01/17 -Brief intervention was offered and accepted Intervention was greater than 5 min in length. Brief interventions include: 1. Assess Readiness to Quit, 2. Advise: Help Patient to Reduce or Abstain from Alcohol, 3. Agree: Set Specific, Feasible Goals, 4. Assist: Anticipate barriers, Problem-Solving Solutions. Social work to 5. Arrange: Referrals to appropriate treatment. Summary of intervention: The patient is in preparation stage with regards to transtheoretical model of change. Indicates plan to reach out to a support to request sponsorship - planning to schedule weekly AA meetings. The patient is advised to decrease alcohol consumption due to depressant effects and risk of interactions with prescription medications. The patient was advised of recommendations for abstinence from alcohol and other abusable substances and to attend substance abuse treatment at discharge, and will be provided with recovery materials to continue to education self on how to cope with their condition without drinking. Inventory Assets Strengths: had been attending therapy appts, signed in as voluntary patient Needs: housing, relationship concerns, re-engaging in therapy, outpatient psychiatrist, clarifying degree of alcohol use concerns, potential of psychotropic medication treatment as part of treatment plan Risk Factors Assessment Male: No Do You Have Access To A Gun?: No Mental Health Diagnoses: Yes Previous Attempt: Yes Previous Psychiatric Hospitalization: Yes Hopelessness: Yes Smoker: Yes Protective Factors Assessment Employed: No Interval History Identifying Information PJ GARBER is a 33-year-old F who currently is homeless and has a history of depression. Pt was admitted on 01/14/19 on a 201 voluntary commitment. Patient was admitted from [facility] ER after being brought to the ER by police given her suicide attempt by cutting her left forearm while intoxicated from alcohol. Chief Complaint "Alright, not too bad." Review of Systems Notes Constitutional: denied Cardiovascular: denied Respiratory: denied Gastrointestinal: denied Neurological: denied Psychiatric: denies symptoms other than stated above Total of at least 10 systems reviewed, pertinent positives as above and in HPI. Sleep Information Total Hours of Sleep: 6 Sleep Comments: pt on q-15 minute checks Meal Information Percent Meal Consumed - Breakfast: 100 Percent Meal Consumed - Lunch: 100 Percent Meal Consumed - Dinner: 90 Subjective Subjective Patient was seen & assessed and interval progress reviewed with Treatment Team. Staff reports the patient had a decent meeting with her caser up yesterday, and is scheduled for a meeting with her girlfriend tomorrow. It was reported that patient had some difficulty last evening, as a situation arose during groups in which she felt her feelings were not being validated by a male peer. Pt reported became upset, left group abruptly, and hid under the sink in her bathroom while she processed the event independently with staff. Pt was was seen today to assess progress since admission. Pt states she is "alright" today, but states yesterday was "pretty rough actually." Pt describes the situation mentioned above - stating she received a phone call from her mother prior to group, in which her mother was asking for money/goods from the patient. Pt states she attempted to vent her feelings of being used and manipulated during group, but was (in her perception) shut down by a male peer who "claimed to understand my relationship with my mom, he doesn't even know me." We explored the possibility that the peer may have intended to be supportive, but the execution may have been unhelpful. Pt was initially indicating she would not be attending groups if this male peer attended. Conversation was eventually able to be redirected toward the patient and her individual treatment needs. She was eventually willing to continue to attend groups, but couldn't as of yet guarantee that she would feel comfortable sharing her feelings. Pt states she did have suicidal thoughts during the event last evening, and remains unable to contract for safety at this time. Pt does have plans to call some housing options today, and reports willingness to contribute to rent and secure an apartment with her girlfriend. Pt denies any needs or concerns thus far today. Physical Exam Psychiatric Orientation: alert, oriented x 3 and cooperative Apperance: appropriately dressed (in sweatshirt and leggings) and + disheveled Eye Contact: good eye contact Motor Behavior: steady gait and station and no abnormal motor movements Speech: normal rate/rhythm/volume of speech Affect: + depressed affect (mildly; reported mood indicates greater severity of depression than shown) and + irritable affect (especially when discussing last evening's event) Mood: + depressed mood ("it's really hard, I'm just trying to keep it all together", ) Thought Process: goal directed thought process and clear/coherent thought process Thought Content: + cognitive distortions (narrow-minded view of last evening's event and well-meaning peer's remarks), reality based without delusions, + hopelessness and + worthlessness Suicidal Thoughts: denies suicidal thoughts (at present time, but admits to SI last evening ) Homicidal Thoughts: denies homicidal thoughts Hallucinations: no auditory hallucinations and no visual hallucinations Cognition: attention grossly intact and language grossly intact Estimated Intelligence: consistent with education level Insight: + impaired insight Judgement: + fair judgement Vital Signs (Past 24 Hours) Last Vital Signs Temp 37 C 01/18/19 06:56 Pulse 82 01/18/19 06:57 Resp 18 01/18/19 06:56 BP 99/64 L 01/18/19 06:57 Pulse Ox 97 01/14/19 11:56 Results & Data Current Inpatient Medications Current Inpatient Medications: Current Inpatient Medications Acetaminophen (Tylenol) 650 mg PO Q4H PRN PRN Reason: Headache or Minor Fever Stop: 02/13/19 11:31 Al Hydrox/Mg Hydrox/Simethicone (Maalox) 30 ml PO Q4H PRN PRN Reason: GI Upset Stop: 02/13/19 11:31 Bismuth Subsalicylate (Kaopectate) 15 ml PO PRN PRN PRN Reason: Loose Stool Stop: 02/13/19 11:31 Gabapentin (Neurontin) 600 mg PO BID ALFREDO Stop: 02/14/19 20:59 Last Admin: 01/18/19 08:51 Dose: 600 mg Documented by: Hydroxyzine HCl (Vistaril) 50 mg PO HSZ PRN PRN Reason: Insomnia Stop: 02/13/19 11:31 Last Admin: 01/14/19 22:49 Dose: 50 mg Documented by: Hydroxyzine HCl (Vistaril) 25 mg PO Q4H PRN PRN Reason: Anxiety Stop: 02/13/19 11:31 Last Admin: 01/17/19 14:09 Dose: 25 mg Documented by: Ibuprofen (Motrin) 800 mg PO TID PRN PRN Reason: Pain Stop: 02/13/19 14:24 Last Admin: 01/17/19 13:19 Dose: 800 mg Documented by: Lamotrigine (Lamictal) 25 mg PO QAM [facility] Stop: 02/14/19 16:29 Last Admin: 01/18/19 08:51 Dose: 25 mg Documented by: Magnesium Hydroxide (Milk Of Magnesia) 30 ml PO DAILY PRN PRN Reason: Heartburn Stop: 02/13/19 11:31 Miscellaneous (Remove Nicoderm Patch) 1 ea N/A HS [facility] Stop: 02/13/19 21:59 Last Admin: 01/17/19 21:06 Dose: Not Given Documented by: Neomycin/Polymyxin/Bacitracin (Neosporin Oint) 1 appln EXT TID PRN PRN Reason: wound healing concerns Stop: 02/13/19 20:59 Last Admin: 01/18/19 09:21 Dose: 1 appln Documented by: Nicotine (Nicoderm Cq) 21 mg TD QAM [facility] Stop: 02/13/19 08:59 Last Admin: 01/18/19 08:51 Dose: 21 mg Documented by: Nicotine Polacrilex (Nicorette 2mg) 1 piece MT UD PRN PRN Reason: Nicotine Withdrawal Stop: 02/13/19 11:31 Sodium Chloride ([place] Nasal) 1 - 2 sprays NA PRN PRN PRN Reason: Nasal Dryness/Congestion Stop: 02/13/19 11:31 Trazodone HCl (Desyrel) 50 mg PO HS PRN PRN Reason: insomnia Stop: 02/16/19 21:59 Last Admin: 01/17/19 22:35 Dose: 50 mg Documented by: Mental Health & Subst Abuse Tx Psychiatrist Name of Psychiatrist: KAY - will be scheduled after the initial intake Therapist Name of Therapist: KAY Paz Therapist's Date of Therapist Appointment: 02/02/19 Time of Therapist Appointment: 12:30 p.m. Therapy [facility] [address] [facility] [place] [address] Director Of Content And Programming Name of Director Of Content And Programming: MARIO ALBERTO Theodore Phone Number for Director Of Content And Programming: [phone] Post Discharge Appointments Primary Care Physician Name Of Family Doctor: FANNY Braden Primary Care Provider Appointment Comment: [address] [facility] [place] [address] CPT Code CPT Code 88019 (1) Alcohol intoxication Complication of substance-induced condition: uncomplicated Qualified Code(s): F10.920 - Alcohol use, unspecified with intoxication, uncomplicated (2) Bipolar disorder Active/Remission status: currently active Current bipolar episode type: depressed
[2019-01-18] MEDS: IBUPROFEN 800 MG TAB PO PRN (17:16)
[2019-01-18] MEDS: TRAZODONE HCL 50 MG TAB PO PRN (22:26)
[2019-01-19] MEDS: NICOTINE 21 MG/24 HR TDSY TD SCH (08:28)
[2019-01-19] MEDS: GABAPENTIN 600 MG TAB PO SCH ×2 (08:29→21:16)
[2019-01-19] MEDS: lamoTRIgine 25 MG TAB PO SCH (08:29)
--- NOTE | 2019-01-19 09:25 | Psychiatric Progress Note ---
Date of Service January 19, 2019 Impression / Recommendations Impression 33 yr old with suicide attempt by slicing her wrist, in context of worsening of depression symptoms, with also h/o PTSD and alcohol usage with past psych admissions, had been attending psychotherapy appts at [facility] but last seen over 2 months ago and did not obtain any psychiatric services nor take psychotropics Meds after last psych admission in May 2018. Pt has continued to demonstrate some irritability on the unit, but has been more cooperative overall. She has been attending group programming. Pt had verbalized hypomanic and mixed episodes occurring 5-10 times or so a year, for several days to perhaps a week at a time, that is different then her depressive or more euthymic states. She was started on lamotrigine which she seems to be tolerating. Trazodone 50 mg initiated as needed to assist with sleep. Ongoing consideration for paroxetine if there is a clear indication or verbalized desire from the patient to begin an SSRI. Reviewed risks of activation or inducing a hypomanic episode versus pot ential benefit in mood/PTSD symptoms. States she last experienced SI during a difficult conversation with a peer two days ago - there is concern her family meeting with girlfriend today could cause decompensation, and therefore recommend she continue to remain in a supportive environment at this time, as she remains unable to adequately regulate her emotions independently. Given her self-inflicted lacerations with intent to end her life, difficulty with regulating emotions, worsening depressive symptoms, and little improvement since admission - patient continues to be at high risk of harm to herself if she discharged prematurely. (1) Suicide attempt: 01/14 - q15 minutes checks (SI) 01/16 - Pt continues to endorse episodes of suicidality - Verbalizes limited improvements in symptoms at this point in her hospitalization - Remains unable to contract for safety outside of hospital setting 01/17 - Denied SI at time of assessment, but verbalized little change in mood and limited hopefulness - Continue to be frustrated her attempt was not successful 01/18 - Verbalizes SI last evening in the context of feeling unsupported by peer - Unable to contract for safety outside of inpatient setting (2) Bipolar disorder: 01/14 - q15 minutes checks (SI) pt guarded,not cooperative and too upset and guarded to engage in treatment planning, she sought to end assessment early and will engage further in treatment planning at next assessment tomorrow, reviewed with nurses and reviewed past hospitalization records. Will consider retrial of prozac or another SSRI/SNRI option if appropriate while also exploring for h/o hypomanic/mixed features aspects to her presentation. Exploring for possible PTSD and anxiety d/o related concerns as well. - coordinated with psychotherapist at [facility] and aim for outpt therapy appointments to resume at [facility] encouraging psychiatric referral for aftercare as well mileui therapy inpt group and individual therapy 01/15 - Bipolar d/o given reports of manic and mixed episodes (was also dx with bipolar d/o per pt back years ago at [facility] reviewed ssri's including Paxil in denial but potential to add to mood lability or to have full manic activation given bipolar d/o does meghna to be appropriate dx based on history obtained and thus will hold off from adding this med at this time Reviewed various mood stabilizers and atypical antipsychotics and pt consent to Lamictal trial after full review of r/b/a including SJS and other potential adverse events from this med and need to stop med if rash or other related s/s occur lamictal 25mg a day rx'd with aim to titrate up as appropriate gabapentin converted to 6-00mg bid given tolerability and her history of finding it tolerable and mood stabilizing/calming for her - referral for psychiatric care at [facility] and attempting to establish aftercare psychotherapy apps after d/c at [facility] with current therapist encouraging family meetings with mother and/or gf 01/16 - Continue lamotrigine at 25mg daily and titrate according to schedule; no verbalized side effects presently - Reviewed risks and benefits of adding paroxetine at this time (further mood instability, inducing krishna/activation versus improvement in mood or PTSD symptoms) - Pt verbalized desire to hold on starting paroxetine and revisit in a few days - Pt agreeable to a family meeting with her girlfriend this week - Continue to encourage group and recreational programming 01/17 - Continue lamotrigine; trazodone 50mg initiated to assist with sleep - Family meeting with girlfriend scheduled for - Pt to meet with director of casework this afternoon - Continue to encourage group participation 01/18 - Continue current medication regimen - Family meeting tomorrow - Assist patient as needed with phone calls regarding housing - Continue to encourage group participation 01/19 - Continue current medication regimen, lamotrigine schedule per standard titration - Family meeting scheduled for this afternoon with girlfriend - Continue to offer support in housing search (3) PTSD (post-traumatic stress disorder): 01/15 consider SSRI as appropriate and needed for PTSD symptoms but holding such med option for now as bipolar d/o concerns are more pressing and ssri might worsen presentation at this time (4) Alcohol intoxication: 01/14 - AWSS added gabapentin taper given alcohol usage and to help minimize alcohol withdrawal concerns with also gabapentin being a reported alleviating med for her in the past. Also consideration of converting to scheduled doses if appropriate - encourage AA and related alcohol based interventions given h/o rehab for alcohol use concerns and pt reported increased alcohol usage lately with exploring for appropriateness of further interventions for alcohol and/or other substance use concerns (+ cannabis on tox) 01/15 - Gabapentin converted to 6-00mg bid given tolerability and her history of finding it tolerable and mood stabilizing/calming for her addressing alcohol concerns, denied h/o significant withdrawal concerns or sz's, exploring for need for more alcohol related interventions - AWSS 01/16 - AWSS discontinued as patient has consistently scored a 0 on assessments 01/17 -Brief intervention was offered and accepted Intervention was greater than 5 min in length. Brief interventions include: 1. Assess Readiness to Quit, 2. Advise: Help Patient to Reduce or Abstain from Alcohol, 3. Agree: Set Specific, Feasible Goals, 4. Assist: Anticipate barriers, Problem-Solving Solutions. Social work to 5. Arrange: Referrals to appropriate treatment. Summary of intervention: The patient is in preparation stage with regards to transtheoretical model of change. Indicates plan to reach out to a support to request sponsorship - planning to schedule weekly AA meetings. The patient is a dvised to decrease alcohol consumption due to depressant effects and risk of interactions with prescription medications. The patient was advised of recommendations for abstinence from alcohol and other abusable substances and to attend substance abuse treatment at discharge, and will be provided with recovery materials to continue to education self on how to cope with their condition without drinking. Inventory Assets Strengths: had been attending therapy appts, signed in as voluntary patient Needs: housing, relationship concerns, re-engaging in therapy, outpatient psychiatrist, clarifying degree of alcohol use concerns, potential of psychotropic medication treatment as part of treatment plan Risk Factors Assessment Male: No Do You Have Access To A Gun?: No Mental Health Diagnoses: Yes Previous Attempt: Yes Previous Psychiatric Hospitalization: Yes Hopelessness: Yes Smoker: Yes Protective Factors Assessment Employed: No Interval History Identifying Information PJ GARBER is a 33-year-old F who currently is homeless and has a history of depression. Pt was admitted on 01/14/19 on a 201 voluntary commitment. Patient was admitted from [facility] ER after being brought to the ER by police given her suicide attempt by cutting her left forearm while intoxicated from alcohol. Chief Complaint "Well I WAS really good..." Review of Systems Notes Constitutional: reports very restful sleep last evening Cardiovascular: denied Respiratory: denied Gastrointestinal: denied Neurological: denied Psychiatric: denies symptoms other than stated above Total of at least 10 systems reviewed, pertinent positives as above and in HPI. Sleep Information Total Hours of Sleep: 7.25 Sleep Comments: pt given trazodone per rn. pt on q-15 minute checks Meal Information Percent Meal Consumed - Breakfast: 85 Percent Meal Consumed - Lunch: 100 Percent Meal Consumed - Dinner: 100 Subjective Subjective Patient was seen & assessed and interval progress reviewed with Nursing and social work. Staff report the patient is to have a meeting with her girlfriend this afternoon, unclear how well this encounter is predicted to go. Pt was seen today to assess progress since admission. Pt states she "WAS" doing well, informing this provider that she had a therapeutic and productive conversation with the male peer she took issue with two days prior. Pt states, "I told him that his response to my venting upset me, and I listened to his thoughts. He apologized, and I accepted. I told him I think that was really what I needed for us to be able to move on." Pt states, "I was really proud of myself, and then no sooner after, my mother called." Pt states her mother was distraught on the phone, telling the patient she had to move and may leave the state. Pt states her mother was verbalizing concerns that she did not have money for cigarettes or housing and didn't know what she would do. Pt verbalized the conversation to this provider, and was commended for her upholding consistent boundaries during the conversation. It appears the patient was able to advocate for herself and set clear limits with her mother. We then had a conversation about "taking the next step" and working on ways to release frustration so it would not impact the remainder of her day. This provider encouraged the patient to find a way to release her frustrations, but then "box it up" and separate it from how she chooses to proceed with the rest of her day. Pt states, "maybe I need to make a paper box, and write stuff down and just put it in." Pt was encouraged to do this, if she felt it could be a positive visual reminder of this skill. Pt states she is mildly nervous about her meeting this afternoon, but is optimistic overall. Pt states, "my girlfriend was asked to make a list of things she is frustrated with or needs to talk about - she told me last night she felt kind of bad doing it, so she made a separate list of positive things about me." Pt denies SI since her altercation with a male peer two evenings ago, but still struggles with emotional regulation. She denies other needs or concerns presently. Physical Exam Psychiatric Orientation: alert, oriented x 3 and cooperative Apperance: appropriately dressed and appropriately groomed (recently showered) Eye Contact: good eye contact Motor Behavior: steady gait and station and no abnormal motor movements Speech: normal rate/rhythm/volume of speech (irritable tone at times, primarily when discussing phone call with her mom) Affect: + depressed affect (mildly; self-report consistently suggests worse depression than displayed) Mood: + depressed mood and + irritable mood ("Just so frustrated with my mother, I can't handle it") Thought Process: goal directed thought process and clear/coherent thought process Thought Content: reality based without delusions (better able to work through cognitive distortions) Suicidal Thoughts: denies suicidal thoughts and denies suicidal intent Homicidal Thoughts: denies homicidal thoughts Hallucinations: no auditory hallucinations and no visual hallucinations Cognition: recent memory grossly intact, attention grossly intact and language grossly intact Estimated Intelligence: consistent with education level Insight: + fair insight Judgement: + fair judgement Vital Signs (Past 24 Hours) Last Vital Signs Temp 36.6 C 01/19/19 06:50 Pulse 83 01/19/19 06:52 Resp 18 01/19/19 06:50 BP 102/66 01/19/19 06:52 Pulse Ox 97 01/14/19 11:56 Results & Data Current Inpatient Medications Current Inpatient Medications: Current Inpatient Medications Acetaminophen (Tylenol) 650 mg PO Q4H PRN PRN Reason: Headache or Minor Fever Stop: 02/13/19 11:31 Al Hydrox/Mg Hydrox/Simethicone (Maalox) 30 ml PO Q4H PRN PRN Reason: GI Upset Stop: 02/13/19 11:31 Bismuth Subsalicylate (Kaopectate) 15 ml PO PRN PRN PRN Reason: Loose Stool Stop: 02/13/19 11:31 Gabapentin (Neurontin) 600 mg PO BID [facility] Stop: 02/14/19 20:59 Last Admin: 01/19/19 08:29 Dose: 600 mg Documented by: Hydroxyzine HCl (Vistaril) 50 mg PO HSZ PRN PRN Reason: Insomnia Stop: 02/13/19 11:31 Last Admin: 01/14/19 22:49 Dose: 50 mg Documented by: Hydroxyzine HCl (Vistaril) 25 mg PO Q4H PRN PRN Reason: Anxiety Stop: 02/13/19 11:31 Last Admin: 01/17/19 14:09 Dose: 25 mg Documented by: Ibuprofen (Motrin) 800 mg PO TID PRN PRN Reason: Pain Stop: 02/13/19 14:24 Last Admin: 01/18/19 17:16 Dose: 800 mg Documented by: Lamotrigine (Lamictal) 25 mg PO QAM [facility] Stop: 02/14/19 16:29 Last Admin: 01/19/19 08:29 Dose: 25 mg Documented by: Magnesium Hydroxide (Milk Of Magnesia) 30 ml PO DAILY PRN PRN Reason: Heartburn Stop: 02/13/19 11:31 Miscellaneous (Remove Nicoderm Patch) 1 ea N/A HS [facility] Stop: 02/13/19 21:59 Last Admin: 01/18/19 22:18 Dose: Not Given Documented by: Neomycin/Polymyxin/Bacitracin (Neosporin Oint) 1 appln EXT TID PRN PRN Reason: wound healing concerns Stop: 02/13/19 20:59 Last Admin: 01/18/19 09:21 Dose: 1 appln Documented by: Nicotine (Nicoderm Cq) 21 mg TD QAM [facility] Stop: 02/13/19 08:59 Last Admin: 01/19/19 08:28 Dose: 21 mg Documented by: Nicotine Polacrilex (Nicorette 2mg) 1 piece MT UD PRN PRN Reason: Nicotine Withdrawal Stop: 02/13/19 11:31 Sodium Chloride ([place] Nasal) 1 - 2 sprays NA PRN PRN PRN Reason: Nasal Dryness/Congestion Stop: 02/13/19 11:31 Trazodone HCl (Desyrel) 50 mg PO HS PRN PRN Reason: insomnia Stop: 02/16/19 21:59 Last Admin: 01/18/19 22:26 Dose: 50 mg Documented by: Mental Health & Subst Abuse Tx Psychiatrist Name of Psychiatrist: [facility] - will be scheduled after the initial intake Therapist Name of Therapist: KAY Paz Therapist's Date of Therapist Appointment: 02/02/19 Time of Therapist Appointment: 12:30 p.m. Therapy Appointment Comment[facility] [address] [place] [address] Torpedo Man Name of Torpedo Man: MARIO ALBERTO Theodore Phone Number for Torpedo Man: [phone] Post Discharge Appointments Primary Care Physician Name Of Family Doctor: FANNY Bradenefonte Primary Care Provider Appointment Comment: [address] [facility] [place] [address] CPT Code CPT Code 88299 (1) Alcohol intoxication Complication of substance-induced condition: uncomplicated Qualified Code(s): F10.920 - Alcohol use, unspecified with intoxication, uncomplicated (2) Bipolar disorder Active/Remission status: currently active Current bipolar episode type: depressed
[2019-01-19] MEDS: TRAZODONE HCL 50 MG TAB PO PRN (21:16)
[2019-01-20] MEDS: GABAPENTIN 600 MG TAB PO SCH (08:41)
[2019-01-20] MEDS: lamoTRIgine 25 MG TAB PO SCH (08:41)
[2019-01-20] MEDS: NICOTINE 21 MG/24 HR TDSY TD SCH (08:44)
--- NOTE | 2019-01-20 10:17 | Discharge Summary ---
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 Jana Roy PA-C. Prescriptions: New gabapentin 600 mg Tablet 600 mg PO BID 30 Days Qty: 60 RF: 0 Triple Antibiotic 3.5mg-400 unit- 5,000 unit/gram Ointment 1 applic EXT TID PRN (Reason: skin infection) 30 Days Qty: 1 RF: 0 trazodone 50 mg Tablet 50 mg PO HS PRN (Reason: insomnia) 30 Days Qty: 30 RF: 0 lamotrigine [Lamictal] 25 mg Tablet 25 mg PO QAM 30 Days Qty: 92 RF: 0 hydroxyzine HCl 25 mg Tablet 25 mg PO Q4H PRN (Reason: anxiety) 30 Days Qty: 30 RF: 0 No Action No Known Home Medications RF: 0 Stand-Alone Forms: [facility] Discharge Orders: Discharge Order (Routine); Ordered 01/20/19 Ordered By: Jana Roy Admission Data Admit Date/Time: 01/14/19 11:32 Attending Provider: Kevin Lane Admit Provider: Heriberto Diaz I Primary Care Provider: PCP,NANDA Service: Psychiatry Other Interventions: Discharge Summary Assessment (RN) Last Done: 01/20/19 10:36 PSY Interdisciplinary Discharge Planning Last Done: 01/20/19 10:38 Pending Studies at Discharge: No DC Date/Time DO NOT enter until pt leaves facility: 01/20/19 12:53
== END 2019-01-20 12:53 | disposition home or self-care (01) | DRG 885 ==
LOC: ED 22:56 → 3S 01-14 11:32
DX: F10.920 Alcohol use, unspecified with intoxication, uncomplicated; Z59.0 Homelessness; Z91.410 Personal history of adult physical and sexual abuse; Z91.411 Personal history of adult psychological abuse; S51.812A Laceration without foreign body of left forearm, initial encounter; F31.9 Bipolar disorder, unspecified; F60.3 Borderline personality disorder; Z81.8 Family history of other mental and behavioral disorders; R45.851 Suicidal ideations; F32.9 Major depressive disorder, single episode, unspecified; F43.10 Post-traumatic stress disorder, unspecified; Z91.5 Personal history of self-harm; X78.9XXA Intentional self-harm by unspecified sharp object, initial encounter; T14.91XA Suicide attempt, initial encounter; Z81.1 Family history of alcohol abuse and dependence

== ENCOUNTER 2021-09-01 01:25 | Inpatient (IN) ==
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
[2021-09-01 02:22] LABS: Basophils # (auto) 0.05 K/uL (0-0.2); Basophils % (auto) 0.6 %; Eosinophils # (auto) 0.07 K/uL (0-0.5); Eosinophils % (auto) 0.8 %; Hematocrit (blood only) 41.2 % (37-47); Hemoglobin 13.6 g/dL (12.0-16.0); Immature Granulocytes # (auto) 0.02 K/uL (0.00-0.02); Immature Granulocytes % (auto) 0.2 %; Lymphocytes # (auto) 3.05 K/uL (1.2-3.4); Lymphocytes % (auto) 34.6 %; Mean Corpuscular Hemoglobin 27.6 pg (25-34); Mean Corpuscular Volume 83.6 fL (80-100); Mean Platelet Volume 9.5 fL (7.4-10.4); Monocytes # (auto) 0.48 K/uL (0.11-0.59); Monocytes % (auto) 5.4 %; Neutrophils # (auto) 5.15 K/uL (1.4-6.5); Neutrophils % (auto) 58.4 %; Platelet Count 295 K/uL (130-400); RDW Coefficient of Variation 14.7 % (11.5-14.5); RDW Standard Deviation 45.1 fL (36.4-46.3); Red Blood Count 4.93 M/uL (4.2-5.4); White Blood Count 8.82 K/uL (4.8-10.8)
[2021-09-01 02:45] LABS: Acetaminophen < 3 ug/ml (10-30); Albumin Globulin Ratio 1.2 (0.9-2); Albumin Level 4.1 gm/dl (3.4-5.0); BUN Creatinine Ratio 9.7 (10-20); Bilirubin,Total 0.2 mg/dl (0.2-1.0); Calcium 8.5 mg/dl (8.5-10.1); Creatinine Clr Calc Pharmacy 102.9 ml/min; Est GFR (African American) 125.8 ml/min; Est GFR (Non-African American) 108.5 ml/min; Globulin 3.3 gm/dl (2.5-4.0); Potassium 3.8 mmol/L (3.5-5.1); Salicylate < 3.0 mg/dl (3.0-30); Total Protein 7.4 gm/dl (6.0-8.3)
--- NOTE | 2021-09-01 07:07 | Emergency Department Note ---
ED Visit Note Patient was received in signout from Dr. Farooq. Patient presented last night after drinking alcohol and taking trazodone and attempt to kill her self. Patient was medically cleared with the exception of clinical sobriety. Currently awaiting clinical sobriety and placement. Patient is agreeable on a 201. Patient awakens to loud voice and does feel little nauseated but still very sleepy. Patient was signed out to Dr. Whalen at change of shift. Still awaiting placement and eval. . : Drug overdose Qualifiers: Encounter type: initial encounter Injury intent: intentional self-harm Qualified Code(s): T50.902A - Poisoning by unspecified drugs, medicaments and biological substances, intentional self-harm, initial encounter Bipolar disorder Qualifiers: Active/Remission status: in partial remission Most recent bipolar episode type: depressed Qualified Code(s): F31.75 - Bipolar disorder, in partial remission, most recent episode depressed
[2021-09-01] MEDS ORDERED: ONDANSETRON 4 MG OD TAB PO STA (11:53)
--- NOTE | 2021-09-01 14:52 | Emergency Department Note ---
ED Visit Note The patient was taken in signout from Dr. Santos at the change of shift. The patient was initially seen by Dr. Farooq. Please see his note for details of the paient's initial presentation. The patient was pending psychiatric evaluation after the patient was drinking alcohol and took trazodone attempting to kill herself. The patient is voluntary for admission at this time. She is awake but drowsy. Her blood alcohol was in the 200s when she arrived and is awaiting to be clinically sober and awake to complete evaluation. She is otherwise medically cleared. Psychiatric case management completed evaluation and referral was made to [address] [place] [address] and the patient was accepted the patient for admission. 201 was signed. : Drug overdose Qualifiers: Encounter type: initial encounter Injury intent: intentional self-harm Qualified Code(s): T50.902A - Poisoning by unspecified drugs, medicaments and biological substances, intentional self-harm, initial encounter Bipolar disorder Qualifiers: Active/Remission status: in partial remission Most recent bipolar episode type: depressed Qualified Code(s): F31.75 - Bipolar disorder, in partial remission, most recent episode depressed
[2021-09-01 15:39] LABS: Bacteria Urine Automated Negative (Negative); Bilirubin Urine Negative (Negative); Blood Urine Negative (Negative); Color Urine Yellow; Epithelial Cell Urine Auto >30 /lpf (0-5); Glucose Urine UA Negative (Negative); Ketones Urine Negative (Negative); Leukocyte Esterase Urine Negative (Negative); Nitrite Urine Negative (Negative); Protein Urine 1+ (Negative); RBC Urine Automated 0-4 /hpf (0-4); Specific Gravity Urine 1.024 (1.000-1.030); Urobilinogen Urine Negative (Negative)
[2021-09-01 15:42] LABS: Pregnancy Test, Urine Negative (Negative)
[2021-09-01 15:47] LABS: Appearance Urine Clear (Clear)
[2021-09-01 16:23] LABS: Amphetamines+Metham, Urine Neg (Neg); Barbiturates, Urine Neg (Neg); Benzodiazepine, Urine Neg (Neg); Cocaine, Urine Neg (Neg); MDMA (Ecstacy), Urine Pos (Neg); Methadone, Urine Neg (Neg); Opiate, Urine Neg (Neg); Phencyclidine, Urine Neg (Neg)
[2021-09-01] MEDS ORDERED: MAGNESIUM HYDROXIDE SUSP 30 ML UDC PO PRN (16:28)
[2021-09-01] MEDS ORDERED: BISMUTH SUBSALICYLATE LIQD 236 ML PO PRN (16:28)
[2021-09-01] MEDS ORDERED: ALUMINUM/MAGNESIUM SUSP 30 ML UDC PO PRN (16:28)
[2021-09-01] MEDS ORDERED: ACETAMINOPHEN 325 MG TAB PO PRN (16:28)
[2021-09-01] MEDS ORDERED: SODIUM CHLORIDE 0.65% NA SOLN 45 ML (OCEAN) PRN (16:28)
[2021-09-01] MEDS ORDERED: hydrOXYzine HCl 25 MG TAB PO PRN ×2 (16:28)
[2021-09-01] MEDS: GABAPENTIN 100 MG CAP PO SCH (21:04)
--- NOTE | 2021-09-01 22:37 | Electrocardiogram Report ---
Test Reason : Blood Pressure : / mmHG Vent. Rate : 121 BPM Atrial Rate : 121 BPM P-R Int : 134 ms QRS Dur : 072 ms QT Int : 338 ms P-R-T Axes : 080 086 077 degrees QTc Int : 479 ms Sinus tachycardia Biatrial enlargement Abnormal ECG No previous ECGs available Confirmed by Jayson Beckman ([id number]) on 09/01/2021 10:36:54 PM Referred By: Confirmed By:Jayson Beckman
[2021-09-02] MEDS: GABAPENTIN 100 MG CAP PO SCH (08:33)
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
[2021-09-02] MEDS ORDERED: lamoTRIgine 25 MG TAB PO SCH (09:00)
[2021-09-02] MEDS: NICOTINE 14 MG/24 HR PATCH TD SCH (09:46)
[2021-09-02] MEDS: GABAPENTIN 300 MG CAP PO SCH (21:45)
--- NOTE | 2021-09-03 08:52 | Psychiatric Progress Note ---
Date of Service September 03, 2021 Impression / Recommendations Impression 36 year old woman with a history of PTSD, BPD who was admitted for suicide attempt via trazodone while intoxicated with alcohol in context of relationship stressors. Diagnostically consistent with BPD as well as unspecified depressive disorder-likely combination of MDD and alcohol use disorder. Suspect false positive MDMA result due to trazodone use on UDS. The patient is deemed unstable and requires psychiatric hospitalization for diagnostic clarification, safety and stabilization, medication management and development of further coping skills. 09/03/21: Slight improvement in mood and lessening slightly of SI. Tolerating medication changes. Motivational interviewing regarding alcohol use. Consents to further increase in gabapentin and initiation of Wellbutrin. No history of binge/purging or restriction nor seizures. Reviewed side effects including but not limited to cardiac effects, black box SI warning, potential for increased anxiety. (1) Borderline personality disorder: (2) MDD (major depressive disorder), recurrent episode, severe: (3) Alcohol use disorder: (4) PTSD (post-traumatic stress disorder): (5) Suicide attempt: 09/03/21: Discontinuing to PAWSS as not scoring. Increase gabapentin to 300mg TID. Start Wellbutrin XL 150mg qd tomorrow. Motivational interviewing regarding alcohol use. 09/02/21: The patient was admitted to [facility] ([facility] inpatient mental health unit) on q15 min checks (behavioral with suicide precautions) for safety. The patient will participate in group, recreational, and milieu therapies and will be offered additional individual and family sessions as clinically appropriate. 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, supportive roommate Needs: further outpatient support, medication adjustment, additional coping skills Risk Factors Assessment Male: No : No Do You Have Access To A Gun?: No Mental Health Diagnoses: Yes Substance Use Disorders: Yes Previous Attempt: Yes Previous Psychiatric Hospitalization: Yes Smoker: Yes Protective Factors Assessment Employed: Yes Stable Relationships: No Interval History Identifying Information PJ GARBER is a 36-year-old woman who currently lives in [place] with a roommate, has a history of PTSD, BPD and was admitted on 09/01/21 16:30 on a 201 voluntary commitment for suicide attempt via intentional overdose of trazodone. Chief Complaint "I feel a little more normal today". Review of Systems Sleep Information Total Hours of Sleep: 8 Meal Information Percent Meal Consumed - Breakfast: 100 Percent Meal Consumed - Lunch: 100 Percent Meal Consumed - Dinner: 0 Nutrition Comment: slept Subjective Subjective Patient was seen & assessed and interval progress reviewed with treatment team nursing and social work. Not scoring on PAWSS. Isolative and withdrawn most of yesterday evening. Today engaging slightly more with peers. States she is finding processing with social work, counselors and groups helpful for her mood. No side effects from increased gabapentin nor lamictal. Discussed that she wants to set more boundaries with her ex-gf and mother. She also thinks [facility] is adding too much stress and she's considering a job change. She is also considering inpatient residential treatment for alcohol use as she has found this very helpful in the past. Physical Exam Psychiatric Orientation: alert and oriented x 3 Apperance: appropriately dressed and appropriately groomed Eye Contact: + poor eye contact Motor Behavior: no abnormal motor movements Speech: normal rate/rhythm/volume of speech Affect: + depressed affect Mood: + depressed mood Thought Process: goal directed thought process Thought Content: reality based without delusions Suicidal Thoughts: denies suicidal plan and denies suicidal intent; + reports suicidal thoughts (intermittent thoughts, able to safety contract ) Homicidal Thoughts: denies homicidal thoughts Hallucinations: no auditory hallucinations and no visual hallucinations Cognition: recent memory grossly intact, remote memory grossly intact, attention grossly intact and language grossly intact Estimated Intelligence: consistent with education level Insight: + limited insight Judgement: + limited judgement Vital Signs (Past 24 Hours) Last Vital Signs Temp 36.9 C 09/03/21 06:00 Pulse 89 09/03/21 06:23 Resp 16 09/03/21 06:00 BP 120/75 09/03/21 06:23 Pulse Ox 96 09/01/21 16:40 Results & Data ([facility]) Current Inpatient Medications Current Inpatient Medications: Current Inpatient Medications Acetaminophen (Acetaminophen 325 Mg Tab) 650 mg PO Q4H PRN PRN Reason: Headache or Minor Fever Stop: 10/01/21 16:27 Al Hydrox/Mg Hydrox/Simethicone (Aluminum/Magnesium Susp 30 Ml Udc) 30 ml PO Q4H PRN PRN Reason: GI Upset Stop: 10/01/21 16:27 Bismuth Subsalicylate (Bismuth Subsalicylate Liqd 236 Ml) 15 ml PO PRN PRN PRN Reason: Loose Stool Stop: 10/01/21 16:27 Gabapentin (Gabapentin 300 Mg Cap) 300 mg PO BID [facility] Stop: 10/02/21 20:59 Last Admin: 09/02/21 21:45 Dose: 300 mg Documented by: Hydroxyzine HCl (Hydroxyzine Hcl 25 Mg Tab) 50 mg PO HSZ PRN PRN Reason: Insomnia Stop: 10/01/21 16:27 Hydroxyzine HCl (Hydroxyzine Hcl 25 Mg Tab) 25 mg PO Q4H PRN PRN Reason: Anxiety Stop: 10/01/21 16:27 Lamotrigine (Lamotrigine 25 Mg Tab) 50 mg PO DAILY [facility] Stop: 10/03/21 08:59 Magnesium Hydroxide (Magnesium Hydroxide Susp 30 Ml Udc) 30 ml PO DAILY PRN PRN Reason: Constipation Stop: 10/01/21 16:27 Miscellaneous (Remove Nicoderm Patch) 1 ea N/A DAILY@0859 [facility] Stop: 10/02/21 08:58 Last Admin: 09/02/21 08:34 Dose: Not Given Documented by: Nicotine (Nicotine 14 Mg/24 Hr Patch) 14 mg TD QAM [facility] Stop: 10/02/21 08:59 Last Admin: 09/02/21 09:46 Dose: 14 mg Documented by: Sodium Chloride (Sodium Chloride 0.65% Na Soln 45 Ml ([place])) 1 - 2 sprays NA PRN PRN PRN Reason: Nasal Dryness/Congestion Stop: 10/01/21 16:27 Mental Health & Subst Abuse Tx Therapist Name of Therapist: None Mine Engineering Superintendent Name of Mine Engineering Superintendent: None Post Discharge Appointments Primary Care Physician Name Of Family Doctor: Dr Tyler
[2021-09-03] MEDS: GABAPENTIN 300 MG CAP PO SCH ×2 (08:53→21:20)
[2021-09-03] MEDS: lamoTRIgine 25 MG TAB PO SCH (08:53)
[2021-09-03] MEDS ORDERED: lamoTRIgine 25 MG TAB PO SCH (09:00)
[2021-09-03] MEDS: NICOTINE 14 MG/24 HR PATCH TD SCH (09:32)
--- NOTE | 2021-09-04 08:45 | Psychiatric Progress Note ---
Date of Service September 04, 2021 Impression / Recommendations Impression 36 year old woman with a history of PTSD, BPD who was admitted for suicide attempt via trazodone while intoxicated with alcohol in context of relationship stressors. Diagnostically consistent with BPD as well as unspecified depressive disorder-likely combination of MDD and alcohol use disorder. Suspect false positive MDMA result due to trazodone use on UDS. The patient is deemed unstable and requires psychiatric hospitalization for diagnostic clarification, safety and stabilization, medication management and development of further coping skills. 09/04/21: Tolerating initiation of Wellbutrin and increased gabapentin. Ongoing depression and ambivalence about surviving attempt. Contemplating residential treatment for alcohol use disorder as she found this very helpful in the past and worries that she could continue attempting to use alcohol as a form of "escapism". Working on setting better boundaries to help manage stressors that lead to suicide attempt. (1) Borderline personality disorder: (2) MDD (major depressive disorder), recurrent episode, severe: (3) Alcohol use disorder: (4) PTSD (post-traumatic stress disorder): (5) Suicide attempt: 09/04/21: Continue with medications. Ongoing motivational interviewing. 09/03/21: Discontinuing to PAWSS as not scoring. Increase gabapentin to 300mg TID. Start Wellbutrin XL 150mg qd tomorrow. Motivational interviewing regarding alcohol use. 09/02/21: The patient was admitted to the [facility] ([facility] mental health unit) on q15 min checks (behavioral with suicide precautions) for safety. The patient will participate in group, recreational, and milieu therapies and will be offered additional individual and family sessions as clinically appropriate. 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 been taking prescribed medications, supportive roommate Needs: further outpatient support, medication adjustment, additional coping skills Risk Factors Assessment Male: No : No Do You Have Access To A Gun?: No Mental Health Diagnoses: Yes Substance Use Disorders: Yes Previous Attempt: Yes Previous Psychiatric Hospitalization: Yes Smoker: Yes Protective Factors Assessment Employed: Yes Stable Relationships: No Interval History Identifying Information PJ GARBER is a 36-year-old woman who currently lives in [place] with a roommate, has a history of PTSD, BPD and was admitted on 09/01/21 16:30 on a 201 voluntary commitment for suicide attempt via intentional overdose of trazodone. Chief Complaint "I was ok until group". Review of Systems Sleep Information Total Hours of Sleep: 7 Meal Information Percent Meal Consumed - Breakfast: 100 Percent Meal Consumed - Lunch: 80 Percent Meal Consumed - Dinner: 90 Nutrition Comment: slept Subjective Subjective Patient was seen & assessed and interval progress reviewed with treatment team nursing and social work. Remains tearful intermittently and still ambivalent about surviving suicide attempt. Was tearful after group related to discussing family conflict themes. No side effects to the medications. Continuing to consider residential treatment versus outpatient for alcohol use disorder. Physical Exam Psychiatric Orientation: alert and oriented x 3 Apperance: appropriately dressed and appropriately groomed Eye Contact: good eye contact Motor Behavior: no abnormal motor movements Speech: normal rate/rhythm/volume of speech Affect: + tearful affect Mood: + depressed mood Thought Process: goal directed thought process Thought Content: reality based without delusions Suicidal Thoughts: denies suicidal thoughts, denies suicidal plan and denies suicidal intent Homicidal Thoughts: denies homicidal thoughts Hallucinations: no auditory hallucinations and no visual hallucinations Cognition: recent memory grossly intact, remote memory grossly intact, attention grossly intact and language grossly intact Estimated Intelligence: consistent with education level Insight: + fair insight Judgement: + fair judgement Vital Signs (Past 24 Hours) Last Vital Signs Temp 36.6 C 09/04/21 06:00 Pulse 80 09/04/21 06:17 Resp 16 09/04/21 06:00 BP 99/67 L 09/04/21 06:17 Pulse Ox 96 09/01/21 16:40 Results & Data ([facility]) Current Inpatient Medications Current Inpatient Medications: Current Inpatient Medications Acetaminophen (Acetaminophen 325 Mg Tab) 650 mg PO Q4H PRN PRN Reason: Headache or Minor Fever Stop: 10/01/21 16:27 Al Hydrox/Mg Hydrox/Simethicone (Aluminum/Magnesium Susp 30 Ml Udc) 30 ml PO Q4H PRN PRN Reason: GI Upset Stop: 10/01/21 16:27 Bismuth Subsalicylate (Bismuth Subsalicylate Liqd 236 Ml) 15 ml PO PRN PRN PRN Reason: Loose Stool Stop: 10/01/21 16:27 Bupropion HCl (Bupropion Xl 150 Mg Tabcr) 150 mg PO QAM [facility] Stop: 10/04/21 08:59 Gabapentin (Gabapentin 300 Mg Cap) 300 mg PO TID [facility] Stop: 10/03/21 20:59 Last Admin: 09/03/21 21:20 Dose: 300 mg Documented by: Hydroxyzine HCl (Hydroxyzine Hcl 25 Mg Tab) 50 mg PO HSZ PRN PRN Reason: Insomnia Stop: 10/01/21 16:27 Hydroxyzine HCl (Hydroxyzine Hcl 25 Mg Tab) 25 mg PO Q4H PRN PRN Reason: Anxiety Stop: 10/01/21 16:27 Lamotrigine (Lamotrigine 25 Mg Tab) 50 mg PO DAILY [facility] Stop: 10/03/21 08:59 Last Admin: 09/03/21 08:53 Dose: 50 mg Documented by: Magnesium Hydroxide (Magnesium Hydroxide Susp 30 Ml Udc) 30 ml PO DAILY PRN PRN Reason: Constipation Stop: 10/01/21 16:27 Miscellaneous (Remove Nicoderm Patch) 1 ea N/A DAILY@0859 [facility] Stop: 10/02/21 08:58 Last Admin: 09/03/21 09:33 Dose: 1 ea Documented by: Nicotine (Nicotine 14 Mg/24 Hr Patch) 14 mg TD QAM [facility] Stop: 10/02/21 08:59 Last Admin: 09/03/21 09:32 Dose: 14 mg Documented by: Sodium Chloride (Sodium Chloride 0.65% Na Soln 45 Ml ([place])) 1 - 2 sprays NA PRN PRN PRN Reason: Nasal Dryness/Congestion Stop: 10/01/21 16:27 Mental Health & Subst Abuse Tx Psychiatrist Name of Psychiatrist: Svetlana Brambila Psychiatrist's Date of Appointment with Psychiatrist: 10/08/21 Time of Appointment with Psychiatrist: 10:15 AM Psychiatric Appointment Comment: [facility] [address], [place] [address] Therapist Name of Therapist: None Mortgage Banker Name of Mortgage Banker: None Post Discharge Appointments Primary Care Physician Name Of Family Doctor: Dr Tyler
[2021-09-04] MEDS: GABAPENTIN 300 MG CAP PO SCH ×3 (09:05→21:04)
[2021-09-04] MEDS: lamoTRIgine 25 MG TAB PO SCH (09:05)
[2021-09-04] MEDS: buPROPion XL 150 MG TABCR PO SCH (09:05)
[2021-09-04] MEDS: NICOTINE 14 MG/24 HR PATCH TD SCH (09:46)
[2021-09-05] MEDS: buPROPion XL 150 MG TABCR PO SCH (08:23)
[2021-09-05] MEDS: lamoTRIgine 25 MG TAB PO SCH (08:23)
[2021-09-05] MEDS: GABAPENTIN 300 MG CAP PO SCH ×3 (08:23→21:07)
--- NOTE | 2021-09-05 08:50 | Psychiatric Progress Note ---
Date of Service September 05, 2021 Impression / Recommendations Impression 36 year old woman with a history of PTSD, BPD who was admitted for suicide attempt via trazodone while intoxicated with alcohol in context of relationship stressors. Diagnostically consistent with BPD as well as unspecified depressive disorder-likely combination of MDD and alcohol use disorder. Suspect false positive MDMA result due to trazodone use on UDS. The patient is deemed unstable and requires psychiatric hospitalization for diagnostic clarification, safety and stabilization, medication management and development of further coping skills. 09/05/21: Tolerating medication changes well. Ongoing depression and ambivalence about surviving attempt but foucsing on establishing more boundaries with conflict-ridden relationships. Contemplating residential treatment for alcohol use disorder as she found this very helpful in the past and worries that she could continue attempting to use alcohol as a form of "escapism" versus outpatient AA involvement. Working on setting better boundaries to help manage stressors that lead to suicide attempt. (1) Borderline personality disorder: (2) MDD (major depressive disorder), recurrent episode, severe: (3) Alcohol use disorder: (4) PTSD (post-traumatic stress disorder): (5) Suicide attempt: 09/05/21: Continue with medications. Working on further coping skills for distress tolerance. 09/04/21: Continue with medications. Ongoing motivational interviewing. 09/03/21: Discontinuing to PAWSS as not scoring. Increase gabapentin to 300mg TID. Start Wellbutrin XL 150mg qd tomorrow. Motivational interviewing regarding alcohol use. 09/02/21: The patient was admitted to the [facility] ([facility] mental health unit) on q15 min checks (behavioral with suicide precautions) for safety. The patient will participate in group, recreational, and milieu therapies and will be offered additional individual and family sessions as clinically appropriate. 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, supportive roommate Needs: further outpatient support, medication adjustment, additional coping skills Risk Factors Assessment Male: No : No Do You Have Access To A Gun?: No Mental Health Diagnoses: Yes Substance Use Disorders: Yes Previous Attempt: Yes Previous Psychiatric Hospitalization: Yes Smoker: Yes Protective Factors Assessment Employed: Yes Stable Relationships: No Interval History Identifying Information PJ GARBER is a 36-year-old woman who currently lives in [place] with a roommate, has a history of PTSD, BPD and was admitted on 09/01/21 16:30 on a 201 voluntary commitment for suicide attempt via intentional overdose of trazodone. Chief Complaint "I really need to work on loving myself". Review of Systems Sleep Information Total Hours of Sleep: 4.25 Meal Information Percent Meal Consumed - Breakfast: 100 Percent Meal Consumed - Lunch: 100 Percent Meal Consumed - Dinner: 100 Nutrition Comment: slept Subjective Subjective Patient was seen & assessed and interval progress reviewed with treatment team nursing and social work. Going to groups. More irritable last night after taking with her ex-girlfriend and then up at 4am due to ongoing anxiety and irritability related to that conflict. Continues to have periods of tearfulness. Slightly more hopeful. Describes feeling rejected by her mother after hearing that she considered Alessandra's suicide attempt to be "attention seeking" showing that "she doesn't love me at all". Also discussed that she struggles with transitions. Feeling safer but still with some ambivalence about being alive, trying to set more boundaries with ex-gf. Motivational interviewing regarding alcohol use, she talked with her roommate who is willing to attend AA meetings with her. Physical Exam Psychiatric Orientation: alert and oriented x 3 Apperance: appropriately dressed and appropriately groomed Eye Contact: good eye contact Motor Behavior: no abnormal motor movements Speech: normal rate/rhythm/volume of speech Affect: + depressed affect and + tearful affect Mood: + depressed mood and + anxious mood Thought Process: goal directed thought process Thought Content: reality based without delusions Suicidal Thoughts: denies suicidal thoughts (still ambivalent about surviving attempt ) Homicidal Thoughts: denies homicidal thoughts Hallucinations: no auditory hallucinations and no visual hallucinations Cognition: recent memory grossly intact, remote memory grossly intact, attention grossly intact and language grossly intact Estimated Intelligence: consistent with education level Insight: + fair insight Judgement: + limited judgement Vital Signs (Past 24 Hours) Last Vital Signs Temp 36.8 C 09/05/21 06:34 Pulse 73 09/05/21 06:35 Resp 18 09/05/21 06:34 BP 102/67 09/05/21 06:35 Pulse Ox 96 09/01/21 16:40 Results & Data ([facility]) Current Inpatient Medications Current Inpatient Medications: Current Inpatient Medications Acetaminophen (Acetaminophen 325 Mg Tab) 650 mg PO Q4H PRN PRN Reason: Headache or Minor Fever Stop: 10/01/21 16:27 Al Hydrox/Mg Hydrox/Simethicone (Aluminum/Magnesium Susp 30 Ml Udc) 30 ml PO Q4H PRN PRN Reason: GI Upset Stop: 10/01/21 16:27 Bismuth Subsalicylate (Bismuth Subsalicylate Liqd 236 Ml) 15 ml PO PRN PRN PRN Reason: Loose Stool Stop: 10/01/21 16:27 Bupropion HCl (Bupropion Xl 150 Mg Tabcr) 150 mg PO QAM [facility] Stop: 10/04/21 08:59 Last Admin: 09/05/21 08:23 Dose: 150 mg Documented by: Gabapentin (Gabapentin 300 Mg Cap) 300 mg PO TID [facility] Stop: 10/03/21 20:59 Last Admin: 09/05/21 08:23 Dose: 300 mg Documented by: Hydroxyzine HCl (Hydroxyzine Hcl 25 Mg Tab) 50 mg PO HSZ PRN PRN Reason: Insomnia Stop: 10/01/21 16:27 Hydroxyzine HCl (Hydroxyzine Hcl 25 Mg Tab) 25 mg PO Q4H PRN PRN Reason: Anxiety Stop: 10/01/21 16:27 Lamotrigine (Lamotrigine 25 Mg Tab) 50 mg PO DAILY [facility] Stop: 10/03/21 08:59 Last Admin: 09/05/21 08:23 Dose: 50 mg Documented by: Magnesium Hydroxide (Magnesium Hydroxide Susp 30 Ml Udc) 30 ml PO DAILY PRN PRN Reason: Constipation Stop: 10/01/21 16:27 Miscellaneous (Remove Nicoderm Patch) 1 ea N/A DAILY@0859 [facility] Stop: 10/02/21 08:58 Last Admin: 09/05/21 08:23 Dose: 1 ea Documented by: Nicotine (Nicotine 14 Mg/24 Hr Patch) 14 mg TD QAM [facility] Stop: 10/02/21 08:59 Last Admin: 09/04/21 09:46 Dose: 14 mg Documented by: Sodium Chloride (Sodium Chloride 0.65% Na Soln 45 Ml ([place])) 1 - 2 sprays NA PRN PRN PRN Reason: Nasal Dryness/Congestion Stop: 10/01/21 16:27 Mental Health & Subst Abuse Tx Psychiatrist Name of Psychiatrist: Svetlana Brambila Psychiatrist's Date of Appointment with Psychiatrist: 10/08/21 Time of Appointment with Psychiatrist: 10:15 AM Psychiatric Appointment Comment: [facility] [address], [place] [address] Therapist Name of Therapist: None Cro Name of Cro: None Post Discharge Appointments Primary Care Physician Name Of Family Doctor: Dr Tyler
[2021-09-05] MEDS: NICOTINE 14 MG/24 HR PATCH TD SCH ×2 (14:57→15:47)
[2021-09-06] MEDS: GABAPENTIN 300 MG CAP PO SCH ×3 (08:39→21:40)
[2021-09-06] MEDS: buPROPion XL 150 MG TABCR PO SCH (08:39)
[2021-09-06] MEDS: lamoTRIgine 25 MG TAB PO SCH (08:39)
[2021-09-06] MEDS: NICOTINE 14 MG/24 HR PATCH TD SCH (09:02)
--- NOTE | 2021-09-06 14:02 | Psychiatric Progress Note ---
Date of Service September 06, 2021 Impression / Recommendations Impression 36 year old woman with a history of PTSD, BPD who was admitted for suicide attempt via trazodone while intoxicated with alcohol in context of relationship stressors. Diagnostically consistent with BPD as well as unspecified depressive disorder-likely combination of MDD and alcohol use disorder. Suspect false positive MDMA result due to trazodone use on UDS. The patient is deemed unstable and requires psychiatric hospitalization for diagnostic clarification, safety and stabilization, medication management and development of further coping skills. 09/05/21: Tolerating medication changes well. Ongoing depression and ambivalence about surviving attempt but foucsing on establishing more boundaries with conflict-ridden relationships. Contemplating residential treatment for alcohol use disorder as she found this very helpful in the past and worries that she could continue attempting to use alcohol as a form of "escapism" versus outpatient AA involvement. Working on setting better boundaries to help manage stressors that lead to suicide attempt. (1) MDD (major depressive disorder), recurrent episode, severe: (2) Borderline personality disorder: (3) Alcohol use disorder: (4) PTSD (post-traumatic stress disorder): (5) Suicide attempt: 09/06/21: declines melatonin for disrupted sleep, needs support meeting, tolerating Wellbutrin XL. 09/05/21: Continue with medications. Working on further coping skills for distress tolerance. 09/04/21: Continue with medications. Ongoing motivational interviewing. 09/03/21: Discontinuing to PAWSS as not scoring. Increase gabapentin to 300mg TID. Start Wellbutrin XL 150mg qd tomorrow. Motivational interviewing regarding alcohol use. 09/02/21: The patient was admitted to the [facility] ([facility] mental health unit) on q15 min checks (behavioral with suicide precautions) for safety. The patient will participate in group, recreational, and milieu therapies and will be offered additional individual and family sessions as clinically appropriate. 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, supportive roommate Needs: further outpatient support, medication adjustment, additional coping skills Risk Factors Assessment Male: No : No Do You Have Access To A Gun?: No Mental Health Diagnoses: Yes Substance Use Disorders: Yes Previous Attempt: Yes Previous Psychiatric Hospitalization: Yes Smoker: Yes Protective Factors Assessment Employed: Yes Stable Relationships: No Interval History Identifying Information PJ GARBER is a 36-year-old woman who currently lives in [place] with a roommate, has a history of PTSD, BPD and was admitted on 09/01/21 16:30 on a 201 voluntary commitment for suicide attempt via intentional overdose of trazodone. Chief Complaint "i feel very guilty for what I put him through, this was selfish" (referring to roommate) Review of Systems Sleep Information Total Hours of Sleep: 6.25 Meal Information Percent Meal Consumed - Breakfast: 100 Percent Meal Consumed - Lunch: 100 Percent Meal Consumed - Dinner: 100 Nutrition Comment: slept Subjective Subjective Patient was seen & assessed and interval progress reviewed with nursing and social work. Patient has been reportedly ambivalent about her OD/surviving and very tearful per staff. Today she talked about her relationship with her roommate who "took me in" 5 months ago. He is accepting of her despite her condition and wonders "why can't my family be like that?". She brightened in discussing work at [employer]. Reviewed rehab criteria and that recommendation would be for IOP as no recent treatment and she only wants outpatient therapy with certain providers. Physical Exam Psychiatric Orientation: alert and oriented x 3 Apperance: appropriately dressed and appropriately groomed Eye Contact: good eye contact Motor Behavior: no abnormal motor movements Speech: normal rate/rhythm/volume of speech Affect: + depressed affect Mood: + depressed mood and + anxious mood Thought Process: goal directed thought process Thought Content: reality based without delusions Suicidal Thoughts: denies suicidal thoughts (but unable to safety plan outside of hospital), denies suicidal plan and denies suicidal intent Homicidal Thoughts: denies homicidal thoughts Hallucinations: no auditory hallucinations and no visual hallucinations Cognition: recent memory grossly intact, remote memory grossly intact, attention grossly intact and language grossly intact Estimated Intelligence: consistent with education level Insight: + limited insight Judgement: + limited judgement Vital Signs (Past 24 Hours) Last Vital Signs Temp 37.1 C 09/06/21 06:47 Pulse 86 09/06/21 06:49 Resp 16 09/06/21 06:47 BP 106/72 09/06/21 06:49 Pulse Ox 96 09/01/21 16:40 Results & Data ([facility]) Current Inpatient Medications Current Inpatient Medications: Current Inpatient Medications Acetaminophen (Acetaminophen 325 Mg Tab) 650 mg PO Q4H PRN PRN Reason: Headache or Minor Fever Stop: 10/01/21 16:27 Al Hydrox/Mg Hydrox/Simethicone (Aluminum/Magnesium Susp 30 Ml Udc) 30 ml PO Q4H PRN PRN Reason: GI Upset Stop: 10/01/21 16:27 Bismuth Subsalicylate (Bismuth Subsalicylate Liqd 236 Ml) 15 ml PO PRN PRN PRN Reason: Loose Stool Stop: 10/01/21 16:27 Bupropion HCl (Bupropion Xl 150 Mg Tabcr) 150 mg PO QAM [facility] Stop: 10/04/21 08:59 Last Admin: 09/06/21 08:39 Dose: 150 mg Documented by: Gabapentin (Gabapentin 300 Mg Cap) 300 mg PO TID [facility] Stop: 10/03/21 20:59 Last Admin: 09/06/21 08:39 Dose: 300 mg Documented by: Hydroxyzine HCl (Hydroxyzine Hcl 25 Mg Tab) 50 mg PO HSZ PRN PRN Reason: Insomnia Stop: 10/01/21 16:27 Hydroxyzine HCl (Hydroxyzine Hcl 25 Mg Tab) 25 mg PO Q4H PRN PRN Reason: Anxiety Stop: 10/01/21 16:27 Lamotrigine (Lamotrigine 25 Mg Tab) 50 mg PO DAILY [facility] Stop: 10/03/21 08:59 Last Admin: 09/06/21 08:39 Dose: 50 mg Documented by: Magnesium Hydroxide (Magnesium Hydroxide Susp 30 Ml Udc) 30 ml PO DAILY PRN PRN Reason: Constipation Stop: 10/01/21 16:27 Miscellaneous (Remove Nicoderm Patch) 1 ea N/A DAILY@0859 [facility] Stop: 10/02/21 08:58 Last Admin: 09/06/21 08:39 Dose: 1 ea Documented by: Nicotine (Nicotine 14 Mg/24 Hr Patch) 14 mg TD QAM [facility] Stop: 10/02/21 08:59 Last Admin: 09/06/21 09:02 Dose: 14 mg Documented by: Sodium Chloride (Sodium Chloride 0.65% Na Soln 45 Ml ([place])) 1 - 2 sprays NA PRN PRN PRN Reason: Nasal Dryness/Congestion Stop: 10/01/21 16:27 Mental Health & Subst Abuse Tx Psychiatrist Name of Psychiatrist: Svetlana Funez Psychiatrist's Date of Appointment with Psychiatrist: 10/08/21 Time of Appointment with Psychiatrist: 10:15 AM Psychiatric Appointment Comment: [address] [facility] [address], [place] [address] Therapist Name of Therapist: JEFF Therapist's Therapy Appointment Comment: [address] [facility], [address], [place] Assembler Knife Name of Assembler Knife: None Post Discharge Appointments Primary Care Physician Name Of Family Doctor: FANNY Tyler Primary Care Time of Appointment with PCP: Follow up as needed Provider Appointment Comment: [address] [place] [address] [place] [address] Contact Information Discharge Discharge Address: [address] [place] [address] [place] [address]
[2021-09-06 18:49] LABS: MDA negative; MDEA negative; MDMA (Ecstasy) Urine, Confirm negative; Marijuana Quant, GCMS Urine 237 ng/mL (<5)
[2021-09-07] MEDS: NICOTINE 14 MG/24 HR PATCH TD SCH (08:26)
[2021-09-07] MEDS: lamoTRIgine 25 MG TAB PO SCH (08:27)
[2021-09-07] MEDS: buPROPion XL 150 MG TABCR PO SCH (08:27)
[2021-09-07] MEDS: GABAPENTIN 300 MG CAP PO SCH ×3 (08:27→21:49)
--- NOTE | 2021-09-07 13:30 | Psychiatric Progress Note ---
Date of Service September 07, 2021 Impression / Recommendations Impression 36 year old woman with a history of PTSD, BPD who was admitted for suicide attempt via trazodone while intoxicated with alcohol in context of relationship stressors. Diagnostically consistent with BPD as well as unspecified depressive disorder-likely combination of MDD and alcohol use disorder. Suspect false positive MDMA result due to trazodone use on UDS. 09/07/21: improving, she did report possible rash on her upper chest that appears to be eczema or from quick scratch, none on abdoment and not spreading. Noticed as dry skin after shower. She will alert staff if spreads. She denies to continue Lamictal as views it as helpful. Plan: continue current meds and treatment plan. 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, has been taking prescribed medications, supportive roommate Needs: further outpatient support, medication adjustment, additional coping skills Risk Factors Assessment Male: No : No Do You Have Access To A Gun?: No Mental Health Diagnoses: Yes Substance Use Disorders: Yes Previous Attempt: Yes Previous Psychiatric Hospitalization: Yes Smoker: Yes Protective Factors Assessment Employed: Yes Stable Relationships: No Interval History Identifying Information PJ GARBER is a 36-year-old woman who currently lives in [place] with a roommate, has a history of PTSD, BPD and was admitted on 09/01/21 16:30 on a 201 voluntary commitment for suicide attempt via intentional overdose of trazodone. Chief Complaint "My energy is better". Review of Systems Sleep Information Total Hours of Sleep: 4 Meal Information Percent Meal Consumed - Breakfast: 100 Percent Meal Consumed - Lunch: 100 Percent Meal Consumed - Dinner: 100 Nutrition Comment: slept Subjective Subjective Patient was seen & assessed and interval progress reviewed with nursing and social work. Reports that she plans to attend AA and/or NA. Has some meetings identified and roommate has agreed to go with her for support. 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 Physical Exam Psychiatric Orientation: alert and oriented x 3 Apperance: appropriately dressed and appropriately groomed Eye Contact: good eye contact Speech: normal rate/rhythm/volume of speech Affect: euthymic affect Mood: no depressed mood Thought Process: goal directed thought process Thought Content: reality based without delusions Suicidal Thoughts: denies suicidal thoughts, denies suicidal plan and denies suicidal intent Homicidal Thoughts: denies homicidal thoughts Hallucinations: no auditory hallucinations and no visual hallucinations Cognition: attention grossly intact and language grossly intact Insight: + fair insight Judgement: + fair judgement Vital Signs (Past 24 Hours) Last Vital Signs Temp 36.9 C 09/07/21 06:40 Pulse 82 09/07/21 06:40 Resp 16 09/07/21 06:40 BP 107/74 09/07/21 06:40 Pulse Ox 96 09/01/21 16:40 Results & Data ([facility]) Laboratory Results Laboratory Results - last 24 hr 09/01/21 15:25 Urine MDEA negative MDMA negative Urine MDMA negative U Marijuana THC Carboxy 237 H Drug Screen Comment SEE NOTE Current Inpatient Medications Current Inpatient Medications: Current Inpatient Medications Acetaminophen (Acetaminophen 325 Mg Tab) 650 mg PO Q4H PRN PRN Reason: Headache or Minor Fever Stop: 10/01/21 16:27 Al Hydrox/Mg Hydrox/Simethicone (Aluminum/Magnesium Susp 30 Ml Udc) 30 ml PO Q4H PRN PRN Reason: GI Upset Stop: 10/01/21 16:27 Bismuth Subsalicylate (Bismuth Subsalicylate Liqd 236 Ml) 15 ml PO PRN PRN PRN Reason: Loose Stool Stop: 10/01/21 16:27 Bupropion HCl (Bupropion Xl 150 Mg Tabcr) 150 mg PO QAM [facility] Stop: 10/04/21 08:59 Last Admin: 09/07/21 08:27 Dose: 150 mg Documented by: Gabapentin (Gabapentin 300 Mg Cap) 300 mg PO TID ALFREDO Stop: 10/03/21 20:59 Last Admin: 09/07/21 08:27 Dose: 300 mg Documented by: Hydroxyzine HCl (Hydroxyzine Hcl 25 Mg Tab) 50 mg PO HSZ PRN PRN Reason: Insomnia Stop: 10/01/21 16:27 Hydroxyzine HCl (Hydroxyzine Hcl 25 Mg Tab) 25 mg PO Q4H PRN PRN Reason: Anxiety Stop: 10/01/21 16:27 Lamotrigine (Lamotrigine 25 Mg Tab) 50 mg PO DAILY [facility] Stop: 10/03/21 08:59 Last Admin: 09/07/21 08:27 Dose: 50 mg Documented by: Magnesium Hydroxide (Magnesium Hydroxide Susp 30 Ml Udc) 30 ml PO DAILY PRN PRN Reason: Constipation Stop: 10/01/21 16:27 Miscellaneous (Remove Nicoderm Patch) 1 ea N/A DAILY@[id number] [facility] Stop: 10/02/21 08:58 Last Admin: 09/07/21 08:27 Dose: 1 ea Documented by: Nicotine (Nicotine 14 Mg/24 Hr Patch) 14 mg TD QAM ALFREDO Stop: 10/02/21 08:59 Last Admin: 09/07/21 08:26 Dose: 14 mg Documented by: Sodium Chloride (Sodium Chloride 0.65% Na Soln 45 Ml ([place])) 1 - 2 sprays NA PRN PRN PRN Reason: Nasal Dryness/Congestion Stop: 10/01/21 16:27 Mental Health & Subst Abuse Tx Psychiatrist Name of Psychiatrist: Svetlana Funez Psychiatrist's Date of Appointment with Psychiatrist: 10/08/21 Time of Appointment with Psychiatrist: 10:15 AM Psychiatric Appointment Comment: [address], [place] [address] Therapist Name of Therapist: JEFF Therapist's Therapy Appointment Comment: [address], [address], [place] Passport Support Associate Name of Passport Support Associate: None Post Discharge Appointments Primary Care Physician Name Of Family Doctor: FANNY Tyler Primary Care Time of Appointment with PCP: Follow up as needed Provider Appointment Comment: [address] [place] [address] [place] [address] Contact Information Discharge Discharge Address: [address] [place] [id number]
[2021-09-08] MEDS: lamoTRIgine 25 MG TAB PO SCH (08:42)
[2021-09-08] MEDS: GABAPENTIN 300 MG CAP PO SCH (08:42)
[2021-09-08] MEDS: buPROPion XL 150 MG TABCR PO SCH (08:42)
[2021-09-08] MEDS: NICOTINE 14 MG/24 HR PATCH TD SCH (08:46)
--- NOTE | 2021-09-08 09:51 | Discharge Summary ---
Date of Service September 08, 2021 History of Present Illness As per Dr. Walter on admission: Miriam presents for psychiatric admission following suicide attempt in the context of alcohol intoxication and ingestion of unspecified amount of trazodone, she estimates maybe about 30 pills. She reported threw up many of the pills prior to presentation at the ED via EMS, who were called after she altered her girlfriend to her suicide attempt. She identifies recent stressors of having conflict with her mother and feeling "overwhelmed with everything" as precipitants to her suicide attempt. She also notes that a precipitant was that "life seems pointless, go to work, come home, fight with the girlfriend", she doesn't get to see or talk to her kids who are in [place], strained relationship with her mom, limited social supports outside of work, and her brother is incarcerated. Currently she is very tearful and withdrawn with difficulty engaging with an interview. States she has SI "constantly" but finds work is good distraction. Since she left [facility] she's been consistently taking the medications except the trazodone because it was making her feel groggy in the morning, but doesn't feel they are helping. She endorses symptoms of "depressed all the time", isolates, stays in bed, only showers when she needs to go to work, sleep is "on and off" usually sleep onset insomnia, stable appetite, and low energy. She continues to have SI and is regretful to have survived the attempt. Feels that she is safe here in the hospital "there's nothing for me to use". She endorses anxiety, hasn't had any panic attacks in a few months. She feels the PTSD symptoms have lessened and gotten better. She recalls that lamictal was started many years ago and feels it helps with her "racing thoughts", to "focus a little better" and with mood stabilization. She hasn't noticed any side effects. Gabapentin was also started for mood stabilization but she doesn't think it's working as well as it used to, she previously took 300mg TID but since [facility] has been 100mg. She notices she cries a lot more on lower dose of gabapentin. Psychiatric ROS notable for denial of hx of psychosis, no known hx krishna, hx self-harm "long time ago" last in 2019, PTSD/hx trauma, substance use, no hx of eating disorder nor purging. Physical Exam Psychiatric See admission H&P and DOD assessment. Vital Signs (Past 24 Hours) Last Vital Signs Temp 36.9 C 09/08/21 06:43 Pulse 91 H 09/08/21 06:44 Resp 16 09/08/21 06:43 BP 113/68 09/08/21 06:44 Pulse Ox 96 09/01/21 16:40 Principal Diagnosis major depressive disorder Psychiatric Data See daily stay summary. In short, safety was maintained and the patient was cooperative with care, she could test staff in a manner consistent with personality disorder and previous stays. She was initially quite overwhelmed and tearful. Medication changes included restart and titration of Neurontin, discontinuation of trazodone (due to OD), titration of Lamictal and trial of Wellbutrin. She tolerated medications well and there was no evidence of rash or activation at discharge. Her energy and motivation improved and she was future focussed with setting boundaries on previous relationship and starting a new job. She was resistant to dual dx IOP referral but did agree to attend AA. She declined a support person/family session but had regular contact with her roommate up to discharge. A safety plan was completed prior to discharge. Day of Discharge Assessment Today the patient voices readiness for discharge. They note improvement in mood and deny thoughts to harm self or others. Thoughts remain organized and they are improved from admission. There is no evidence of psychosis. They agree to take mediations as prescribed and keep follow-up appointments. They are stable for discharge to outpatient level of care. Transition of Care Transition Of Care Record: was reviewed with the patient Advance Directives Advance Directives Information Provided: Yes Advance Directives: No Mental Health Advance Directive: No Advance Directives on File: No Living Will: No Power of Mill Laborer: No Advance Directives Reason:: Declines as Mental Health Visit. Risk Factors Assessment Male: No : No Do You Have Access To A Gun?: No Mental Health Diagnoses: Yes Substance Use Disorders: Yes Previous Attempt: Yes Previous Psychiatric Hospitalization: Yes Smoker: Yes Protective Factors Assessment Employed: Yes Stable Relationships: No Tobacco Cessation at Discharge Tobacco Cessation Medication Prescribed at Discharge: Offered & Pt Refused Total Time Total Time Spent: Less Than 30 Minutes Discharge Data Lab Results 09/01/21 09/01/21 09/01/21 02:06 02:06 02:06 WBC 8.82 RBC 4.93 Hgb 13.6 Hct 41.2 MCV 83.6 MCH 27.6 MCHC 33.0 RDW Std Deviation 45.1 RDW Coeff of Mikey 14.7 H Plt Count 295 MPV 9.5 Immature Gran % (Auto) 0.2 Neut % (Auto) 58.4 Lymph % (Auto) 34.6 Cloud % (Auto) 5.4 Eos % (Auto) 0.8 Baso % (Auto) 0.6 Neut # (Auto) 5.15 Lymph # (Auto) 3.05 Cloud # (Auto) 0.48 Eos # (Auto) 0.07 Baso # (Auto) 0.05 Immature Gran # (Auto) 0.02 Sodium 138 Potassium 3.8 Chloride 107 Carbon Dioxide 24 Anion Gap 7 BUN 7 Creatinine 0.72 Est Cr Clr Drug Dosing 102.9 Est GFR ( Amer) 125.8 Est GFR (Non-Af Amer) 108.5 BUN/Creatinine Ratio 9.7 L Glucose 102 H Calcium 8.5 Total Bilirubin 0.2 AST 18 ALT 12 Alkaline Phosphatase 75 Total Protein 7.4 Albumin 4.1 Globulin 3.3 Albumin/Globulin Ratio 1.2 Urine Color Urine Appearance Urine pH Ur Specific [place] Urine Protein Urine Glucose (UA) Urine Ketones Urine Blood Urine Nitrite Urine Bilirubin Urine Urobilinogen Ur Leukocyte Esterase Urine WBC (Auto) Urine RBC (Auto) U Hyaline Cast (Auto) U Epithel Cells (Auto) Urine Bacteria (Auto) Urine Test Salicylates < 3.0 L Urine Opiates Screen Ur Methadone, Qual Acetaminophen < 3 L Urine Barbiturates Ur Phencyclidine (PCP) U Amphetamin/Meth Scrn Urine MDEA MDMA (Ecstasy) Screen MDMA Urine MDMA U Benzodiazepines Scrn Ur Cocaine Metabolite U Marijuana (THC) Screen U Marijuana THC Carboxy Drug Screen Comment Ethyl Alcohol mg/dL SARS-CoV-2, RNA, NAAT 09/01/21 09/01/21 09/01/21 02:06 06:15 15:25 WBC RBC Hgb Hct MCV MCH MCHC RDW Std Deviation RDW Coeff of Mikey Plt Count MPV Immature Gran % (Auto) Neut % (Auto) Lymph % (Auto) Cloud % (Auto) Eos % (Auto) Baso % (Auto) Neut # (Auto) Lymph # (Auto) Cloud # (Auto) Eos # (Auto) Baso # (Auto) Immature Gran # (Auto) Sodium Potassium Chloride Carbon Dioxide Anion Gap BUN Creatinine Est Cr Clr Drug Dosing Est GFR ( Amer) Est GFR (Non-Af Amer) BUN/Creatinine Ratio Glucose Calcium Total Bilirubin AST ALT Alkaline Phosphatase Total Protein Albumin Globulin Albumin/Globulin Ratio Urine Color Yellow Urine Appearance Clear Urine pH 7.0 Ur Specific [place] 1.024 Urine Protein 1+ H Urine Glucose (UA) Negative Urine Ketones Negative Urine Blood Negative Urine Nitrite Negative Urine Bilirubin Negative Urine Urobilinogen Negative Ur Leukocyte Esterase Negative Urine WBC (Auto) 1-5 Urine RBC (Auto) 0-4 U Hyaline Cast (Auto) 5-10 H U Epithel Cells (Auto) >30 H Urine Bacteria (Auto) Negative Urine Test Salicylates Urine Opiates Screen Ur Methadone, Qual Acetaminophen Urine Barbiturates Ur Phencyclidine (PCP) U Amphetamin/Meth Scrn Urine MDEA MDMA (Ecstasy) Screen MDMA Urine MDMA U Benzodiazepines Scrn Ur Cocaine Metabolite U Marijuana (THC) Screen U Marijuana THC Carboxy Drug Screen Comment Ethyl Alcohol mg/dL 233.3 H SARS-CoV-2, RNA, NAAT NEGATIVE 09/01/21 09/01/21 09/01/21 15:25 15:25 15:25 WBC RBC Hgb Hct MCV MCH MCHC RDW Std Deviation RDW Coeff of Mikey Plt Count MPV Immature Gran % (Auto) Neut % (Auto) Lymph % (Auto) Cloud % (Auto) Eos % (Auto) Baso % (Auto) Neut # (Auto) Lymph # (Auto) Cloud # (Auto) Eos # (Auto) Baso # (Auto) Immature Gran # (Auto) Sodium Potassium Chloride Carbon Dioxide Anion Gap BUN Creatinine Est Cr Clr Drug Dosing Est GFR ( Amer) Est GFR (Non-Af Amer) BUN/Creatinine Ratio Glucose Calcium Total Bilirubin AST ALT Alkaline Phosphatase Total Protein Albumin Globulin Albumin/Globulin Ratio Urine Color Urine Appearance Urine pH Ur Specific [place] Urine Protein Urine Glucose (UA) Urine Ketones Urine Blood Urine Nitrite Urine Bilirubin Urine Urobilinogen Ur Leukocyte Esterase Urine WBC (Auto) Urine RBC (Auto) U Hyaline Cast (Auto) U Epithel Cells (Auto) Urine Bacteria (Auto) Urine Test Negative Salicylates Urine Opiates Screen Neg Ur Methadone, Qual Neg Acetaminophen Urine Barbiturates Neg Ur Phencyclidine (PCP) Neg U Amphetamin/Meth Scrn Neg Urine MDEA negative MDMA (Ecstasy) Screen Pos H MDMA negative Urine MDMA negative U Benzodiazepines Scrn Neg Ur Cocaine Metabolite Neg U Marijuana (THC) Screen Pos H U Marijuana THC Carboxy 237 H Drug Screen Comment SEE NOTE Ethyl Alcohol mg/dL SARS-CoV-2, RNA, NAAT Hospital Course (1) MDD (major depressive disorder), recurrent episode, severe: (2) Borderline personality disorder: (3) Alcohol use disorder: (4) PTSD (post-traumatic stress disorder): (5) Suicide attempt: 09/06/21: declines melatonin for disrupted sleep, needs support meeting, tolerating Wellbutrin XL. 09/05/21: Continue with medications. Working on further coping skills for distress tolerance. 09/04/21: Continue with medications. Ongoing motivational interviewing. 09/03/21: Discontinuing to PAWSS as not scoring. Increase gabapentin to 300mg TID. Start Wellbutrin XL 150mg qd tomorrow. Motivational interviewing regarding alcohol use. 09/02/21: The patient was admitted to the [facility] ([facility]) on q15 min checks (behavioral with suicide precautions) for safety. The patient will participate in group, recreational, and milieu therapies and will be offered additional individual and family sessions as clinically appropriate. -Increase lamictal from 25 mg qd to 50mg qd -Titrate gabapentin from 100mg BID to 300mg BID -On passive AWSS for alcohol use -NRT patch -Eventually start Wellbutrin once outside potential range for acute withdrawal from alcohol Mental Health & Subst Abuse Tx Psychiatrist Name of Psychiatrist: Svetlana Funez Psychiatrist's Date of Appointment with Psychiatrist: 10/08/21 Time of Appointment with Psychiatrist: 10:15 AM Psychiatric Appointment Comment: [address] [facility] [address], [place] [address] Therapist Name of Therapist: JEFF/ [place] Therapist's Time of Therapist Appointment: On the waiting list Therapy Appointment Comment: [address] [facility] [facility], [address], [place] Supervisor [employer] Name of Supervisor In [employer] Testing: None Post Discharge Appointments Primary Care Physician Name Of Family Doctor: FANNY Tyler Primary Care Time of Appointment with PCP: Follow up as needed Provider Appointment Comment: [address] [place] [address] Smoking Cessation Counseling Tobacco Cessation Medication Prescribed at Discharge: Offered & Pt Refused Contact Information Discharge Discharge Address: [address] [place] [id number] Discharge Plan Discharge Items Patient Disposition: Home - Self-Care Reason For Visit: S/P OD, MDD Discharge Diagnosis: major depressive disorder Activity: Resume your previous activity Non-emergency contact: Primary Care Provider, Psychiatrist and Therapist Call non-emergency contact if: you have any medication questions and your symptoms worsen Follow-up/Referrals: Bridget Tyler MD [Primary Care Provider] - Diet: Regular Addtl Attending Provider Instructions: SPECIAL CARE INSTRUCTIONS: 1. Follow through with your scheduled aftercare appointments. If unable to keep an appointment, please call to reschedule. 2. Take your medication only as prescribed. Medication should not be changed or stopped without the approval of your doctor. In the event of worsening symptoms or concerns about side effects, contact your doctor immediately. 3. Utilize new healthy coping skills, anger management skills, and stress management skills learned during your hospitalization. Journal feelings and process them with a support person. Identify stressors or situations that may result in relapse, deterioration or inappropriate behaviors and develop a plan to deal with those issues. 4. If your coping skills are ineffective and you are in crisis, contact your outpatient providers for direction. If unable to reach your providers, please call the [facility] CRISIS LINE AT , go to the [facility] walk-in center at [address], [address], [place], or go to the closest Emergency Room. 5. Avoid alcohol and un-prescribed drugs. 6. You have been provided with the Mental Health Advance Directives Pamphlet for your review. 7. Your condition is stable for discharge to outpatient level of care, but recovery is an ongoing process. Ifthoughts to harm yourself or others return, follow the safety plan developed during your stay. Planning for a safe return home includes securing weapons. Our treatment team recommends weaponsbe removed from the home until your outpatient provider reassesses your progress. In rare cases where the items themselvescannot be removed, guns and ammunitionshould be secured separatelyand keys stored by a reliable personoutside of the home. If you were admitted on an involuntary commitment, the police or other legal authorities may be involved in this process. AFTERCARE APPOINTMENTS: * Please call your insurance company prior to your scheduled appointment to confirm your aftercare providers are covered. Take your insurance information to your appointments. WHO TO CALL AND WHEN: Medical Emergencies: For questions or emergencies related to your hospital stay, please contact the Inpatient Behavioral Health Unit at [phone]. A general internal medicine physician is on-call 18/01 for the Behavioral Health Unit for emergencies At any time you feel your situation is an emergency, you may also call 911 immediately. Pending Studies at Discharge: No Stand-Alone Forms: My [facility] [employer], Smoking Cessation Medications and DC Order Prescriptions: New gabapentin 300 mg Capsule 300 mg PO TID Qty: 30 RF: 2 lamotrigine [Lamictal] 25 mg Tablet 50 mg PO DAILY 10 Days Qty: 20 RF: 0 lamotrigine [Lamictal] 100 mg tablet 100 mg PO DAILY Qty: 20 RF: 0 bupropion HCl 150 mg Tablet Extended Release 24 Hr 150 mg PO QAM Qty: 30 RF: 0 Continued gabapentin [Neurontin] 100 mg capsule 100 mg PO BID RF: 0 Discontinued trazodone 100 mg tablet 100 mg PO HS Qty: 30 RF: 0 lamotrigine 25 mg tablet 25 mg PO DAILY Qty: 30 RF: 0 Discharge Orders: Discharge Order (Routine); Ordered 09/08/21 Ordered By: Tahira Ramos Admission Data Admit Date/Time: 09/01/21 16:30 Attending Provider: Tahira Ramos Admit Provider: Hafsa Walter Primary Care Provider: Bridget Tyler Other Interventions: Discharge Summary Assessment (RN) Last Done: 09/08/21 10:04 PSY Interdisciplinary Discharge Planning Last Done: 09/08/21 10:04 Coding Level of Care Code 41301 D/C day mgmt 30 min or < Diagnoses MDD (major depressive disorder), recurrent episode, severe F33.2 Borderline personality disorder F60.3 Alcohol use disorder PTSD (post-traumatic stress disorder) F43.10 Suicide attempt T14.91XA
== END 2021-09-08 10:22 | disposition home or self-care (01) | DRG 885 ==
LOC: ED 01:25 → SUATTDRO 16:30 → 3S 16:30